=== PATIENT | female | born 1995 | race Caucasian/White ===

== ENCOUNTER → 2017-10-13 | Outpatient (CLI) | payer OTHER ==
[~2017-10-13] MED LIST: ALBU90I INH; AMPDEX10; AZIT250 PO; BENZ100A PO; BIRTH CONTROL; Bactrim Ds Tab1 EACH PO; CEPH500 PO; DIPATR PO; IBUP600 PO; IBUP800 PO; MAGCIT300 PO; METERG.2 PO; METR500 PO; MULVITMINE PO; NAPR500 PO; OXYACE5T PO; PREN-16 PO; PROM25 PO; RXOXYACE PO; RXTRAM50 PO; SULTRIDS PO; TRAM50 PO; Verotin-Gr Cap1 EACH PO
[2017-10-15 13:59] LABS: HPV Genotype 16 Detected (NOTDET); HPV Genotype 18 Not Detected (NOTDET)
[2017-10-21 08:17] LABS: HPV High Risk Other Detected (NOTDET)
== END | disposition home or self-care (01) ==
LOC: LAB 14:20
PROVIDERS: Obstetrics & Gynecology
DX: Z01.419 Encounter for gynecological examination (general) (routine) without abnormal findings (principal)
CPT/HCPCS: 87624; G0123

== ENCOUNTER 2017-11-13 19:15 | Emergency (ER) | END 2017-11-13 21:05 | disposition home or self-care (01) ==

== ENCOUNTER → 2017-11-17 | Outpatient (CLI) | payer OTHER | END | disposition home or self-care (01) | LOC: PLD 13:03 → LAB SHORT 13:03 | DX: B97.7 Papillomavirus as the cause of diseases classified elsewhere (principal) | CPT/HCPCS: 88305 ==

== ENCOUNTER 2019-03-11 16:24 | Emergency (ER) | payer OTHER ==
[~2019-03-11] VITALS: Ht 152.4 cm; Wt 45.4 kg
[2019-03-11 17:48] LABS: Source, Urine Voided
[2019-03-11 17:57] LABS: Appearance, Urine Hazy (Clear); Bilirubin, Urine Neg (Neg); Blood, Urine Neg (Neg); Color, Urine Yellow (P-Yellow); Glucose Qualitative, Urine Neg (Neg); Ketones, Urine Neg (Neg); Leukocyte Esterase, Urine 2+ (Neg); Nitrite, Urine Neg (Neg); Protein, Urine Neg (Neg); Specific Gravity, Urine 1.015 (1.003-1.022); Urobilinogen, Urine NORM (Normal)
[2019-03-11 17:59] LABS: BASOPHILS ABSOLUTE AUTO 0.04 K/mm3 (0.00-0.23); BASOPHILS PERCENT AUTO 0 % (0-2); EOSINOPHILS ABSOLUTE AUTO 0.14 K/mm3 (0.00-0.68); EOSINOPHILS PERCENT AUTO 1 % (0-6); Hematocrit 40.8 % (33.0-51.0); Hemoglobin 13.6 g/dL (11.5-16.0); IMMATURE GRAN ABSOLUTE AUTO 0.04 K/mm3 (0.00-0.10); IMMATURE GRAN PERCENT AUTO 0 % (0-1); LYMPHOCYTES ABSOLUTE AUTO 4.06 K/mm3 (0.84-5.20); LYMPHOCYTES PERCENT AUTO 31 % (21-46); MONOCYTES ABSOLUTE AUTO 1.02 K/mm3 (0.16-1.47); MONOCYTES PERCENT AUTO 8 % (4-13); Mean Corpuscular HGB 32.4 pg (26.0-34.0); Mean Corpuscular HGB Conc 33.3 g/dL (31.5-36.5); Mean Corpuscular Volume 97 fL (80-100); NEUTROPHILS ABSOLUTE AUTO 7.92 K/mm3 (1.96-9.15); NEUTROPHILS PERCENT AUTO 60 % (41-73); Platelet Count 305 K/mm3 (150-400); RDW Coefficient Variation 13.8 % (11.7-14.2); RDW Standard Deviation 49.1 fL (35.1-46.3); White Blood Cell Count 13.22 K/mm3 (4.00-11.30)
[2019-03-11 18:24] LABS: Bacteria Mod /hpf; Red Blood Cells, Urine 0-2 /hpf (0-2); Squamous Epithelial Cells Few /hpf (Few)
[2019-03-11 18:25] LABS: Amorphous Mod (0-Heavy); Calcium Oxalate Crystals Few /hpf
[2019-03-11 18:36] LABS: Alanine Aminotransfer (ALT/SGP 23 U/L (12-78); Albumin, Blood 3.9 g/dL (3.4-5.0); Albumin/Globulin Ratio 1.1 (0.8-1.8); Alk Phos 62 U/L (50-136); Anion Gap 8 mmol/L (6-16); Aspartate Aminotrans (AST/SGOT 15 U/L (12-37); Bilirubin, Total 0.2 mg/dL (0.1-1.0); Blood Urea Nitrogen 10 mg/dL (8-24); Bun/Creatinine Ratio 12.6 (12.0-20.0); CO2, Blood 23 mmol/L (21-32); Chloride, Blood 107 mmol/L (98-108); Globulin, Blood 3.6 g/dL (2.2-4.0); Glomerular Filtration Rate >60 (60-); Glucose, Blood 82 mg/dL (70-99); Potassium, Blood 3.4 mmol/L (3.5-5.5); Sodium, Blood 138 mmol/L (136-145); Total Protein, Blood 7.5 g/dL (6.4-8.2)
[2019-03-11 18:50] LABS: Beta HCG, Quantitative, Serum 7713 mIU/mL (0-3)
[2019-03-11] MEDS ORDERED: Amoxicillin500 MG PO (19:49)
[2019-03-11] MEDS ORDERED: Vitafol-Ob+Dha1 EACH PO (19:49)
[2019-03-11] MEDS ORDERED: PYRI100 PO (19:49)
== END 2019-03-11 20:02 | disposition home or self-care (01) ==
LOC: ER 16:24
PROVIDERS: Emergency Medicine
DX: O99.89 Other specified diseases and conditions complicating pregnancy, childbirth and the puerperium (principal); R07.9 Chest pain, unspecified; R10.2 Pelvic and perineal pain; O99.331 Smoking (tobacco) complicating pregnancy, first trimester; F17.200 Nicotine dependence, unspecified, uncomplicated; Z88.1 Allergy status to other antibiotic agents; Z3A.01 Less than 8 weeks gestation of pregnancy
CPT/HCPCS: 36415; 71045; 76801; 76817; 80053; 81001; 84702; 85025; 85379; 87086; 93005; 93010; 99284-25

== ENCOUNTER 2019-10-22 10:45 | Inpatient (IN) | payer OTHER ==
[~2019-10-22] VITALS: Ht 152.4 cm; Wt 54.1 kg
[~2019-10-22 10:45] MED LIST changes: +Amoxicillin500 MG PO; +PYRI100 PO; +Vitafol-Ob+Dha1 EACH PO
[2019-10-22] MEDS ORDERED: PREPLUS CA-FE1 EACH PO (10:56)
--- NOTE | 2019-10-22 12:48 | NUR ---
10/22/19 1248 Shelton Harrell DELIVERY OF VIABLE MALE INFANT AT 1228. CORD BLOOD COLLECTED AND GIVEN TO SHAW ISSA. CORD SEGMENT COLLECTED FOR CORD GAS AND GIVEN TO ALEKSANDAR LUA. SEE ANESTHESIA AND SUMMARIES.
[2019-10-22 12:49] LABS: PCO2 Cord - Arterial 57.7 mmHg (40-50); pH Cord - Arterial 7.24 (7.28-7.35)
[2019-10-22 12:53] LABS: PCO2 Cord - Venous 48.2 mmHg (40-50); PO2 Cord - Venous 16.7 mmHg (28-32); pH Umbilical Cord - Venous 7.32 (7.26-7.35)
--- NOTE | 2019-10-22 13:45 | NUR ---
VOLUMETRIC CRULLER MAKER MACHINE GIVEN AN INSTRUCTIONS PROVIDED. PT DEMONSTRATED UNDERSTANDING.
--- NOTE | 2019-10-22 16:00 | NUR ---
RECIEVED REPORT FROM ELOINA Parker ASSUMED CARE OF PT
--- NOTE | 2019-10-22 17:27 | NUR ---
PT OOB TO WHEELCHAIR TO SMOKE, WITH FAMILY MEMBERS. PT SIGNED AMA FORM FOR SMOKING. RN EDUCATED PT ABOUT THE RISK OF GOING OUT TO SMOKE. PT VERBALIZED UNDERSTANDING. NB TO NURSE STATION.
--- NOTE | 2019-10-22 18:00 | NUR ---
PT BACK FROM SMOKING. PT BACK TO BED. PT TOLERATED WELL PAIN LEVEL 3/10. NB BACK TO ROOM FOR MOTHER TO FEED NB.
--- NOTE | 2019-10-22 21:15 | NUR ---
PATIENT OUTSIDE TO SMOKE IN WHEELCHAIR.
[2019-10-23 06:13] LABS: Hematocrit 30.2 % (33.0-51.0); Hemoglobin 9.9 g/dL (11.5-16.0); Mean Corpuscular HGB 30.5 pg (26.0-34.0); Mean Corpuscular HGB Conc 32.8 g/dL (31.5-36.5); Mean Corpuscular Volume 93 fL (80-100); Mean Platelet Volume 10.4 fL (9.1-12.4); Platelet Count 250 K/mm3 (150-400); RDW Coefficient Variation 13.2 % (11.7-14.2); RDW Standard Deviation 45.1 fL (35.1-46.3); Red Blood Cell Count 3.25 M/mm3 (3.80-5.20)
[2019-10-23 06:59] LABS: BAND PERCENT MAN 10 % (0-8); BASOPHILS PERCENT MAN 0 % (0-2); EOSINOPHILS PERCENT MAN 0 % (0-6); LYMPHOCYTES ABSOLUTE MAN 3.96 K/mm3 (0.84-5.20); LYMPHOCYTES PERCENT MAN 20 % (21-46); MONOCYTES ABSOLUTE MAN 0.99 K/mm3 (0.16-1.47); MONOCYTES PERCENT MAN 5 % (4-13); NEUTROPHILS ABSOLUTE MAN 14.85 K/mm3 (1.96-9.15); SEG NEUTROPHILS PERCENT MAN 65 % (41-73); TOTAL CELLS COUNTED 100
[2019-10-24] MEDS ORDERED: DOCU100 PO (07:46)
[2019-10-24] MEDS ORDERED: Percocet 5-3251 EACH (07:46)
[2019-10-24] MEDS ORDERED: IBUP800 (07:46)
--- NOTE | 2019-10-24 08:14 | NUR ---
PATIENT ALREADY HAS PORTAL ACCOUNT THROUGH [email or web address]
--- NOTE | 2019-10-24 09:54 | NUR ---
D/C INSTRUCTIONS DISCUSSED AND SIGNED. NO QUESTIONS OR CONCERNS AT THIS TIME.
--- NOTE | 2019-10-24 10:06 | NUR ---
D/C HOME WITH BABY
== END 2019-10-24 10:05 | disposition home or self-care (01) | DRG 785 ==
LOC: BC 10:45
PROVIDERS: Nurse Practitioner Obstetrics & Gynecology; ADMIT Obstetrics & Gynecology
PROC: 10D00Z1 Extraction of Products of Conception, Low, Open Approach (ICD-10-PCS; principal; 2019-10-22 11:00)
PROC: 0UT70ZZ Resection of Bilateral Fallopian Tubes, Open Approach (ICD-10-PCS; 2019-10-22 11:00)
DX: O34.211 Maternal care for low transverse scar from previous cesarean delivery (principal); O36.5930 Maternal care for other known or suspected poor fetal growth, third trimester, not applicable or unspecified; Z3A.37 37 weeks gestation of pregnancy; Z37.0 Single live birth
CPT/HCPCS: 36415; 82803; 85025; 86850; 86900; 86901; 88302; A9270-GY; J0690; J1885; J2590; J2765; J7120

== ENCOUNTER 2023-10-28 10:40 | Day surgery (SDC) | payer OTHER ==
[2023-10-28] VITALS (11 sets, daily range): BP systolic 101–127; BP diastolic 59–81
[~2023-10-28] VITALS: Ht 152.4 cm; Wt 55.0 kg
[~2023-10-28 10:40] MED LIST changes: +DOCU100 PO; +IBUP800; +NARCAN4 M1; +PREPLUS CA-FE1 EACH PO; +Percocet 5-3251 EACH
[2023-10-28] MEDS ORDERED: Lactated Ringer's 1,000 ML IV SCH (11:00)
[2023-10-28] MEDS ORDERED: CeFAZolin Sodium 2,000 MG in NS 50 ML IV SCH (11:00)
[2023-10-28] MEDS ORDERED: Midazolam HCl 1MG / ML 2ML Vial IV SCH (12:40)
[2023-10-28] MEDS ORDERED: propofoL 20 ML IV ONE (12:44)
[2023-10-28] MEDS ORDERED: FentaNYL Citrate 50 MCG/ML 2 ML Injection ONE (12:44)
[2023-10-28] MEDS ORDERED: Bupivacaine 0.5% HCl 5 MG/ML 30MLVIAL ONE (12:54)
[2023-10-28] MEDS ORDERED: Glycopyrrolate 0.2 MG/ML 5ML VIAL ONE (13:12)
[2023-10-28] MEDS ORDERED: Dexamethasone Sod Phos 10 MG/ML 1ML VIAL ONE (13:15)
[2023-10-28] MEDS ORDERED: Metoclopramide HCl 5MG / ML 2ML Vial ONE (13:15)
[2023-10-28] MEDS ORDERED: Ondansetron HCl 2 MG / ML 2ML Vial ONE (13:15)
[2023-10-28] MEDS ORDERED: OxyCODONE 5 mg/Acetamin 325 mg TABLET PO PRN (14:10)
--- NOTE | 2023-10-28 15:31 | NUR ---
Patient up to Ambulate independently. Gait steady. Discharge instructions reviewed with patient. Patient verbalizes understanding. Copy given to patient to take home. AWAITINNG RIDE HOME. TOLERATING PO WELL.
--- NOTE | 2023-10-28 16:05 | NUR ---
Discharge instructions reviewed with patient. Patient verbalizes understanding. Copy given to patient to take home. Discharged via wheelchair to private car for ride home.
== END 2023-10-28 15:55 | disposition home or self-care (01) ==
LOC: ORSCMMR 10:40 → ORD 12:00 → ORSCMMR 12:00
PROVIDERS: Obstetrics & Gynecology
PROC: 0UBC7ZX Excision of Cervix, Via Natural or Artificial Opening, Diagnostic (ICD-10-PCS; principal; 2023-10-28 12:00)
DX: D06.0 Carcinoma in situ of endocervix (principal); R87.810 Cervical high risk human papillomavirus (HPV) DNA test positive; F17.210 Nicotine dependence, cigarettes, uncomplicated
CPT/HCPCS: 88305; A9270; J0690; J1100; J2250; J2405; J2704; J2765; J3010; J7120

== ENCOUNTER 2024-06-03 19:46 | Emergency (ER) | payer OTHER ==
[~2024-06-03] VITALS: Ht 152.4 cm; Wt 53.5 kg
[2024-06-03] MEDS ORDERED: MIRT30 (20:08)
[2024-06-03] MEDS ORDERED: NS 1,000 ML IV SCH (21:05)
[2024-06-03] MEDS ORDERED: Morphine Sulfate 4 MG/1 ML Injection IV ONE (21:05)
[2024-06-03 21:28] LABS: BASOPHILS ABSOLUTE AUTO 0.05 K/mm3 (0.00-0.23); BASOPHILS PERCENT AUTO 1 % (0-2); EOSINOPHILS ABSOLUTE AUTO 0.45 K/mm3 (0.00-0.68); EOSINOPHILS PERCENT AUTO 5 % (0-6); Hemoglobin 12.6 g/dL (11.5-16.0); IMMATURE GRAN ABSOLUTE AUTO 0.01 K/mm3 (0.00-0.10); IMMATURE GRAN PERCENT AUTO 0 % (0-1); LYMPHOCYTES ABSOLUTE AUTO 4.74 K/mm3 (0.84-5.20); LYMPHOCYTES PERCENT AUTO 50 % (21-46); MONOCYTES ABSOLUTE AUTO 0.68 K/mm3 (0.16-1.47); MONOCYTES PERCENT AUTO 7 % (4-13); Mean Corpuscular HGB 32.6 pg (26.0-34.0); Mean Corpuscular HGB Conc 33.2 g/dL (31.5-36.5); Mean Corpuscular Volume 98 fL (80-100); Mean Platelet Volume 9.9 fL (9.1-12.4); NEUTROPHILS ABSOLUTE AUTO 3.57 K/mm3 (1.96-9.15); NEUTROPHILS PERCENT AUTO 38 % (41-73); Platelet Count 316 K/mm3 (150-400); RDW Coefficient Variation 13.7 % (11.7-14.2); RDW Standard Deviation 49.7 fL (35.1-46.3); Red Blood Cell Count 3.87 M/mm3 (3.80-5.20)
[2024-06-03 21:56] LABS: Alanine Aminotransfer (ALT/SGP 14 U/L (12-78); Albumin, Blood 3.5 g/dL (3.4-5.0); Alk Phos 57 U/L (50-136); Anion Gap 13 mmol/L (3-11); Aspartate Aminotrans (AST/SGOT 13 U/L (12-37); Bilirubin, Total <0.1 mg/dL (0.1-1.0); Blood Urea Nitrogen 24 mg/dL (8-24); Bun/Creatinine Ratio 22.2 (12.0-20.0); CO2, Blood 22 mmol/L (21-32); Calcium, Blood 9.2 mg/dL (8.5-10.1); Chloride, Blood 112 mmol/L (98-108); Creatinine, Blood 1.08 mg/dL (0.40-1.00); Globulin, Blood 3.6 g/dL (2.2-4.0); Glomerular Filtration Rate 71 (60-); Glucose, Blood 100 mg/dL (70-99); Potassium, Blood 3.5 mmol/L (3.5-5.5); Sodium, Blood 143 mmol/L (136-145); Total Protein, Blood 7.1 g/dL (6.4-8.2)
[2024-06-03 23:25] LABS: Source, Urine Clean Catch
[2024-06-03 23:29] LABS: Bilirubin, Urine Neg (Neg); Blood, Urine Neg (Neg); Glucose Qualitative, Urine Neg (Neg); Ketones, Urine Neg (Neg); Leukocyte Esterase, Urine Neg (Neg); Nitrite, Urine Neg (Neg); Protein, Urine 1+ (Neg); Urobilinogen, Urine NORM (Normal)
[2024-06-03 23:42] LABS: Appearance, Urine Hazy (Clear); Color, Urine Yellow (P-Yellow)
[2024-06-03 23:43] LABS: Amorphous Light (0-Heavy); Bacteria Few /hpf; Red Blood Cells, Urine Not Seen /hpf (0-2); Squamous Epithelial Cells Mod /hpf (Few); White Blood Cells, Urine Not Seen /hpf (0-5)
[2024-06-04 01:15] VITALS: BP 98/65
== END 2024-06-04 04:02 | disposition home or self-care (01) ==
LOC: ER 19:46
PROVIDERS: Student in an Organized Health Care Education/Training Program
DX: R10.9 Unspecified abdominal pain (principal); Z79.899 Other long term (current) drug therapy; Z91.040 Latex allergy status; Z88.1 Allergy status to other antibiotic agents
CPT/HCPCS: 74177; 80053; 81001; 81025; 83690; 85025; 96361; 96374-59; 99284-25; J2270; J7030; Q9967

== ENCOUNTER 2024-06-17 13:31 | Emergency (ER) | payer OTHER ==
[~2024-06-17] VITALS: Ht 152.4 cm; Wt 54.0 kg
[~2024-06-17 13:31] MED LIST changes: +MIRT30 PO
[2024-06-17] MEDS ORDERED: Ketorolac Tromethamine 15mg Vial IM ONE (16:15)
[2024-06-17] MEDS ORDERED: Ondansetron 4 MG SoluTab SL ONE (16:15)
[2024-06-17 17:15] VITALS: BP 122/81
[2024-06-17] MEDS ORDERED: OxyCODONE HCL 5 MG TAB PO ONE (17:15)
[2024-06-17] MEDS ORDERED: ONDA4ODT MM (17:16)
[2024-06-17] MEDS ORDERED: DOCU100 PO (17:16)
[2024-06-17] MEDS ORDERED: OXAYDO5 M1 PO (17:16)
== END 2024-06-17 17:28 | disposition home or self-care (01) ==
LOC: ER 13:31
DX: R10.2 Pelvic and perineal pain (principal); F17.200 Nicotine dependence, unspecified, uncomplicated; Z79.899 Other long term (current) drug therapy; Z91.040 Latex allergy status; Z88.1 Allergy status to other antibiotic agents
CPT/HCPCS: 96360; 96372; 99283-25; A9270; J1885

== ENCOUNTER 2024-06-29 09:47 | Day surgery (SDC) | payer OTHER ==
[~2024-06-29] VITALS: Ht 152.4 cm; Wt 54.3 kg
[2024-06-29] VITALS (11 sets, daily range): BP systolic 105–137; BP diastolic 61–100
[~2024-06-29 09:47] MED LIST changes: +CeFAZolin Sodium 2,000 MG in NS 100 ML IV SCH; +Dexamethasone Sod Phos 10 MG/ML 1ML VIAL ONE; +FentaNYL Citrate 50 MCG/ML 2 ML Injection ONE; +Ketorolac Tromethamine 30mg Vial ONE; +Lactated Ringer's 1,000 ML IV SCH; +ONDA4ODT MM; +OXAYDO5 M1 PO; +Ondansetron HCl 2 MG / ML 2ML Vial ONE; +Rocuronium Bromide 10 MG/ML 5ML Injection IV ONE; +Sugammadex Sodium 200 MG/2ML SDV (100 MG/ML) ONE; +propofoL 20 ML IV ONE
[2024-06-29] MEDS ORDERED: IBUP200 PO (10:02)
[2024-06-29] MEDS ORDERED: Lidocaine HCl 1% 5 ML SYR INJ ONE (10:40)
[2024-06-29] MEDS ORDERED: Midazolam HCl 1MG / ML 2ML Vial IV PRN (10:45)
[2024-06-29] MEDS ORDERED: Vancomycin HCl 1000 MG ADDvantage ONE (11:37)
[2024-06-29] MEDS ORDERED: Bupivacaine 0.5% HCl 5 MG/ML 30MLVIAL ONE (11:38)
[2024-06-29] MEDS ORDERED: Rocuronium Bromide 10 MG/ML 5ML Injection IV ONE ×2 (12:30→13:35)
[2024-06-29] MEDS ORDERED: HYDROmorphone HCl/Pf 1MG SYR ONE (13:29)
[2024-06-29] MEDS ORDERED: Promethazine HCl 25 MG Tab PO PRN (15:15)
[2024-06-29] MEDS ORDERED: HYDROmorphone HCl/Pf 1MG SYR IV PRN (15:15)
[2024-06-29] MEDS ORDERED: FLU VACC TS2024-25(6MOS UP)/PF 45 MCG/0.5 ML SYRINGE IM PRN (15:15)
[2024-06-29] MEDS ORDERED: Simethicone 80 MG Chew PO PRN (15:15)
[2024-06-29] MEDS ORDERED: OxyCODONE 5 mg/Acetamin 325 mg TABLET PO PRN (15:20)
[2024-06-29] MEDS ORDERED: Ondansetron 4 MG TAB PO PRN (15:20)
[2024-06-29] MEDS ORDERED: Lactated Ringer's 1,000 ML IV SCH (15:20)
[2024-06-29] MEDS ORDERED: Naloxone HCl 0.4MG / ML 1ML Vial IV PRN (15:20)
[2024-06-29] MEDS ORDERED: Promethazine HCl 12.5 MG Supp PR PRN (15:20)
[2024-06-29] MEDS ORDERED: Ondansetron HCl 2 MG / ML 2ML Vial IV PRN (15:20)
[2024-06-29] MEDS ORDERED: Ketorolac Tromethamine 30mg Vial IV PRN (15:25)
--- NOTE | 2024-06-29 16:00 | NUR ---
ARRIVAL TO UNIT PT ARRIVED VIA GOURNEY FROM PACU. PT SLID TO BED. PT GRIMACE c MOVEMENT BUT REPORTS PAIN TOLERABLE AT THIS TIME. A&O x4, VERY DROWSY, EASILY ROUSABLE. VSS. PT DENIES N/V. SEYMOUR DRAINING YELLOW URINE. LAP SITES x4 c WOUND GLUE C/D/I. K-PAD PLACED ON ABD. ORIENTED TO UNIT, CALL LIGHT IN REACH, BED IN LOWEST POSITION.
[2024-06-29] MEDS ORDERED: Percocet 5-3251 EACH PO (17:41)
[2024-06-29] MEDS ORDERED: PROMETHAZINE12.5 M1 PO (17:43)
[2024-06-29] MEDS ORDERED: SIME80CH PO (17:44)
[2024-06-29] MEDS ORDERED: CeFAZolin Sodium 2,000 MG in NS 100 ML IV SCH (18:00)
--- NOTE | 2024-06-29 19:57 | NUR ---
SHIFT SUMMARY POD 0 TOTAL LAP HYSTR. NO ACUTE CHANGES. VSS, PT BRYANT TO 49, QUICKLY REBOUNDS TO 60s, ASYMPTOMATIC. TOLERATING WATER, REPORTS NAUSEA, DENIES EMESIS. PT REPORTS INCREASED ABD PAIN, MEDICATED PER EMAR. K-PAD IN PLACE OVER ABD. AMBULATES USING FWW c GB & SBA R/T WEAKNESS/PAIN. LAP SITE x4 C/D/I. APPROX QUARTER SIZED SANG DRAINAGE ON JOSEPH PAD. SEYMOUR IN PLACE, DRAINING YELLOW URINE. ANTICIPATED DISCHARGE IN AM. CALL LIGHT IN REACH, BED IN LOWEST POSITION, REPORT GIVEN TO DEMETRIUS RN.
[2024-06-29] MEDS ORDERED: Mirtazapine 30 MG Tab PO SCH (21:00)
[2024-06-30 00:13] VITALS: BP 105/47
[2024-06-30 04:44] VITALS: BP 119/69
[2024-06-30 04:48] LABS: BASOPHILS ABSOLUTE AUTO 0.06 K/mm3 (0.00-0.23); BASOPHILS PERCENT AUTO 0 % (0-2); EOSINOPHILS ABSOLUTE AUTO 0.12 K/mm3 (0.00-0.68); EOSINOPHILS PERCENT AUTO 1 % (0-6); Hematocrit 34.3 % (33.0-51.0); Hemoglobin 11.6 g/dL (11.5-16.0); IMMATURE GRAN ABSOLUTE AUTO 0.05 K/mm3 (0.00-0.10); IMMATURE GRAN PERCENT AUTO 0 % (0-1); LYMPHOCYTES ABSOLUTE AUTO 2.68 K/mm3 (0.84-5.20); LYMPHOCYTES PERCENT AUTO 18 % (21-46); MONOCYTES ABSOLUTE AUTO 0.92 K/mm3 (0.16-1.47); MONOCYTES PERCENT AUTO 6 % (4-13); Mean Corpuscular HGB 32.6 pg (26.0-34.0); Mean Corpuscular HGB Conc 33.8 g/dL (31.5-36.5); Mean Corpuscular Volume 96 fL (80-100); Mean Platelet Volume 9.8 fL (9.1-12.4); NEUTROPHILS ABSOLUTE AUTO 10.72 K/mm3 (1.96-9.15); NEUTROPHILS PERCENT AUTO 74 % (41-73); Platelet Count 271 K/mm3 (150-400); RDW Coefficient Variation 12.9 % (11.7-14.2); RDW Standard Deviation 46.7 fL (35.1-46.3); Red Blood Cell Count 3.56 M/mm3 (3.80-5.20); White Blood Cell Count 14.55 K/mm3 (4.00-11.30)
--- NOTE | 2024-06-30 06:39 | NUR ---
SHIFT SUMMARY PATIENT DOING WELL ONLY NEEDED 1 DOES IV PAIN MED TONIGHT.NO NAUSEA. AMB WELL TO BR, VOIDING. EATING REGULAR FOOD BY MIDNIGHT.VSS.
[2024-06-30 07:34] VITALS: BP 112/63
--- NOTE | 2024-06-30 10:47 | NUR ---
DISCHARGE: PACKET PRINTED AND PT EDUCATED. PT REPORTS THAT SHE WAS GIVEN HER SCRIPTS PRE OP BY DR. JONES BUT " CAN'T REMEMBER IF SHE FILLED THE NARCOTIC". PT ASKED TO CHECK HER SUPPLY WHEN SHE GETS HOME AND CALL DR. JONES'S OFFICE IF SHE NEEDS A NEW SCRIPT. PT LEFT UNIT ON WHEELCHAIR WITH THIS RN AT 103
== END 2024-06-30 10:11 | disposition home or self-care (01) ==
LOC: ORSCMMR 09:47 → ORD 11:30 → ORSCMMR 12:30 → ORD 12:30 → SURS 16:00 → ORSCMMR 16:00 → SURS 06-30 10:11 → ORSCMMR 06-30 10:11
PROVIDERS: Obstetrics & Gynecology
PROC: 0UT9FZZ Resection of Uterus, Via Natural or Artificial Opening With Percutaneous Endoscopic Assistance (ICD-10-PCS; principal; 2024-06-29 11:30)
PROC: 0UT7FZZ Resection of Bilateral Fallopian Tubes, Via Natural or Artificial Opening With Percutaneous Endoscopic Assistance (ICD-10-PCS; principal; 2024-06-29 11:30)
DX: N80.319 Endometriosis of the anterior cul-de-sac, unspecified depth (principal); D25.9 Leiomyoma of uterus, unspecified; N94.12 Deep dyspareunia; D06.0 Carcinoma in situ of endocervix; N82.1 Other female urinary-genital tract fistulae; N94.6 Dysmenorrhea, unspecified; R10.2 Pelvic and perineal pain; N80.03 Adenomyosis of the uterus; R23.4 Changes in skin texture; F41.9 Anxiety disorder, unspecified; F32.A Depression, unspecified; F43.10 Post-traumatic stress disorder, unspecified; Z79.899 Other long term (current) drug therapy
CPT/HCPCS: 36415; 85025; 86850; 86900; 86901; 88307; 94762; A9270; J0690; J1100; J1170; J1171; J1885; J2250; J2405; J2704; J3010; J3370; J7120

== ENCOUNTER → 2024-08-25 | Outpatient (CLI) | payer OTHER ==
[~2024-08-25] MED LIST changes: +ACET500 PO; +ACIDOPHILUS1 EAC3 PO; +AMOCLA875 PO; -CeFAZolin Sodium 2,000 MG in NS 100 ML IV SCH; -Dexamethasone Sod Phos 10 MG/ML 1ML VIAL ONE; -FentaNYL Citrate 50 MCG/ML 2 ML Injection ONE; +IBUP200 PO; -Ketorolac Tromethamine 30mg Vial ONE; -Lactated Ringer's 1,000 ML IV SCH; +OXYC5 PO; -Ondansetron HCl 2 MG / ML 2ML Vial ONE; +PROMETHAZINE12.5 M1 PO; +Percocet 5-3251 EACH PO; -Rocuronium Bromide 10 MG/ML 5ML Injection IV ONE; +SIME80CH PO; -Sugammadex Sodium 200 MG/2ML SDV (100 MG/ML) ONE; +VALA500 PO; -propofoL 20 ML IV ONE
[2024-08-25 10:36] LABS: BASOPHILS ABSOLUTE AUTO 0.04 K/mm3 (0.00-0.23); BASOPHILS PERCENT AUTO 0 % (0-2); EOSINOPHILS ABSOLUTE AUTO 0.11 K/mm3 (0.00-0.68); EOSINOPHILS PERCENT AUTO 1 % (0-6); Hematocrit 38.7 % (33.0-51.0); IMMATURE GRAN ABSOLUTE AUTO 0.02 K/mm3 (0.00-0.10); IMMATURE GRAN PERCENT AUTO 0 % (0-1); LYMPHOCYTES ABSOLUTE AUTO 2.58 K/mm3 (0.84-5.20); LYMPHOCYTES PERCENT AUTO 28 % (21-46); MONOCYTES ABSOLUTE AUTO 0.72 K/mm3 (0.16-1.47); MONOCYTES PERCENT AUTO 8 % (4-13); Mean Corpuscular HGB 32.3 pg (26.0-34.0); Mean Corpuscular HGB Conc 33.6 g/dL (31.5-36.5); Mean Corpuscular Volume 96 fL (80-100); Mean Platelet Volume 9.8 fL (9.1-12.4); NEUTROPHILS ABSOLUTE AUTO 5.64 K/mm3 (1.96-9.15); NEUTROPHILS PERCENT AUTO 62 % (41-73); Platelet Count 361 K/mm3 (150-400); RDW Standard Deviation 46.4 fL (35.1-46.3); Red Blood Cell Count 4.02 M/mm3 (3.80-5.20); White Blood Cell Count 9.11 K/mm3 (4.00-11.30)
[2024-08-25 10:55] LABS: Albumin, Blood 3.6 g/dL (3.4-5.0); Albumin/Globulin Ratio 0.9 (0.8-1.8); Bilirubin, Total 0.3 mg/dL (0.1-1.0); Bun/Creatinine Ratio 19.1 (12.0-20.0); Calcium, Blood 9.6 mg/dL (8.5-10.1); Creatinine, Blood 1.15 mg/dL (0.40-1.00); Potassium, Blood 4.1 mmol/L (3.5-5.5); Total Protein, Blood 7.6 g/dL (6.4-8.2)
[2024-08-25 15:18] LABS: Bacterial Vaginosis PCR Negative (NEGATIVE); Candida Group, PCR NOT DETECTED (NOT DETECT); Candida glabrata-krusei, PCR NOT DETECTED (NOT DETECT)
[2024-08-25 15:54] LABS: Chlamydia Trachomatis Vaginal NOT DETECTED (NOT DETECT); Neisseria Gonorrhoea Vaginal NOT DETECTED (NOT DETECT)
== END | disposition home or self-care (01) ==
LOC: LAB SHORT 10:31 → LAB 10:31
PROVIDERS: Emergency Medicine
DX: N89.8 Other specified noninflammatory disorders of vagina (principal); R10.2 Pelvic and perineal pain; R82.81 Pyuria
CPT/HCPCS: 80053; 85025; 87077; 87086; 87186; 87481; 87491; 87591; 87661; 87801

== ENCOUNTER 2024-08-26 21:50 | Inpatient (IN) | payer OTHER ==
[~2024-08-26] VITALS: Ht 152.4 cm; Wt 56.0 kg
[~2024-08-26 21:50] MED LIST changes: -ACET500 PO; -ACIDOPHILUS1 EAC3 PO; -AMOCLA875 PO; -OXYC5 PO; -VALA500 PO
[2024-08-26 22:25] LABS: BASOPHILS ABSOLUTE AUTO 0.06 K/mm3 (0.00-0.23); BASOPHILS PERCENT AUTO 0 % (0-2); EOSINOPHILS ABSOLUTE AUTO 0.42 K/mm3 (0.00-0.68); EOSINOPHILS PERCENT AUTO 2 % (0-6); Hematocrit 39.1 % (33.0-51.0); IMMATURE GRAN ABSOLUTE AUTO 0.07 K/mm3 (0.00-0.10); IMMATURE GRAN PERCENT AUTO 0 % (0-1); LYMPHOCYTES ABSOLUTE AUTO 2.97 K/mm3 (0.84-5.20); LYMPHOCYTES PERCENT AUTO 17 % (21-46); MONOCYTES PERCENT AUTO 7 % (4-13); Mean Corpuscular HGB 32.6 pg (26.0-34.0); Mean Corpuscular HGB Conc 33.2 g/dL (31.5-36.5); Mean Corpuscular Volume 98 fL (80-100); Mean Platelet Volume 9.6 fL (9.1-12.4); NEUTROPHILS ABSOLUTE AUTO 12.73 K/mm3 (1.96-9.15); NEUTROPHILS PERCENT AUTO 73 % (41-73); Platelet Count 330 K/mm3 (150-400); RDW Standard Deviation 46.7 fL (35.1-46.3); Red Blood Cell Count 3.99 M/mm3 (3.80-5.20); White Blood Cell Count 17.45 K/mm3 (4.00-11.30)
[2024-08-26] MEDS ORDERED: Ondansetron HCl 2 MG / ML 2ML Vial IV ONE (22:25)
[2024-08-26] MEDS ORDERED: Morphine Sulfate 4 MG/1 ML Injection IV ONE ×2 (22:25→22:40)
[2024-08-26 22:45] LABS: Albumin, Blood 3.5 g/dL (3.4-5.0); Albumin/Globulin Ratio 0.9 (0.8-1.8); Bilirubin, Total 0.5 mg/dL (0.1-1.0); Bun/Creatinine Ratio 17.5 (12.0-20.0); Calcium, Blood 9.1 mg/dL (8.5-10.1); Creatinine, Blood 1.03 mg/dL (0.40-1.00); Globulin, Blood 3.9 g/dL (2.2-4.0); Potassium, Blood 3.6 mmol/L (3.5-5.5); Total Protein, Blood 7.4 g/dL (6.4-8.2)
[2024-08-26] MEDS ORDERED: HYDROmorphone HCl/Pf 1MG SYR IV ONE (23:10)
[2024-08-26 23:38] LABS: Source, Urine Voided
[2024-08-26 23:41] LABS: Bilirubin, Urine Neg (Neg); Blood, Urine 5+ (Neg); Glucose Qualitative, Urine Neg (Neg); Ketones, Urine Neg (Neg); Leukocyte Esterase, Urine 3+ (Neg); Nitrite, Urine Neg (Neg); Protein, Urine 3+ (Neg); Specific Gravity, Urine 1.015 (1.003-1.022); Urobilinogen, Urine NORM (Normal)
[2024-08-26 23:45] LABS: Appearance, Urine Hazy (Clear); Color, Urine Yellow (P-Yellow)
[2024-08-26 23:49] LABS: Bacteria Mod /hpf; Squamous Epithelial Cells Many /hpf (Few)
[2024-08-27] MEDS ORDERED: Piperacillin/Tazobactam Sod 4.5 GM in NS 100 ML IV ONE (00:25)
[2024-08-27] MEDS ORDERED: NS 1,000 ML IV SCH (00:30)
[2024-08-27] MEDS ORDERED: Nicotine 21 MG PATCH TOP ONE (01:00)
[2024-08-27 01:45] VITALS: BP 97/57
[2024-08-27] MEDS ORDERED: NS 1,000 ML IV ONE (02:21)
[2024-08-27] MEDS ORDERED: Ondansetron HCl 2 MG / ML 2ML Vial IV PRN (03:05)
[2024-08-27] MEDS ORDERED: HYDROmorphone HCl/Pf 1MG SYR IV PRN (03:05)
[2024-08-27 04:00] VITALS: BP 99/60
[2024-08-27] MEDS ORDERED: Piperacillin/Tazobactam Sod 3.375 GM in NS 100 ML IV SCH (06:00)
--- NOTE | 2024-08-27 06:48 | NUR ---
PT ARRIVED TO UNIT AFTER MIDNIGHT. C/O MODERATE TO SEVERE PAIN IN PELVIC REGION. PT GIVEN PRN DILAUDID WITH GOOD EFFECT AND GIVEN HEAT PAD FOR ABDOMEN WHICH SEEMED TO HELP. PTS VSS ON RA. PT REMAINS NPO AT THIS TIME. NO FURTHER QUESTIONS OR CONCERNS AT THIS TIME.
[2024-08-27 07:23] VITALS: BP 106/53
[2024-08-27 10:52] LABS: BASOPHILS ABSOLUTE AUTO 0.06 K/mm3 (0.00-0.23); BASOPHILS PERCENT AUTO 0 % (0-2); EOSINOPHILS PERCENT AUTO 5 % (0-6); Hematocrit 35.7 % (33.0-51.0); Hemoglobin 11.8 g/dL (11.5-16.0); IMMATURE GRAN ABSOLUTE AUTO 0.05 K/mm3 (0.00-0.10); IMMATURE GRAN PERCENT AUTO 0 % (0-1); LYMPHOCYTES ABSOLUTE AUTO 2.39 K/mm3 (0.84-5.20); LYMPHOCYTES PERCENT AUTO 17 % (21-46); MONOCYTES ABSOLUTE AUTO 1.28 K/mm3 (0.16-1.47); MONOCYTES PERCENT AUTO 9 % (4-13); Mean Corpuscular HGB 32.5 pg (26.0-34.0); Mean Corpuscular HGB Conc 33.1 g/dL (31.5-36.5); Mean Corpuscular Volume 98 fL (80-100); Mean Platelet Volume 10.2 fL (9.1-12.4); NEUTROPHILS PERCENT AUTO 69 % (41-73); Platelet Count 309 K/mm3 (150-400); RDW Coefficient Variation 13.1 % (11.7-14.2); RDW Standard Deviation 47.1 fL (35.1-46.3); Red Blood Cell Count 3.63 M/mm3 (3.80-5.20); White Blood Cell Count 14.38 K/mm3 (4.00-11.30)
[2024-08-27] MEDS ORDERED: ValACYClovir HCL 500 MG Tab PO SCH (12:00)
--- NOTE | 2024-08-27 14:00 | NUR ---
RECIEVED ORDER FROM DR. JONES TO CHANGE DILAUDID TO PO FROM IV AND CHANGE NICOTINE PATCH TO 14MG.
[2024-08-27 14:34] VITALS: BP 119/73
[2024-08-27] MEDS ORDERED: Nicotine 14 MG PATCH TOP SCH (15:05)
[2024-08-27] MEDS ORDERED: HYDROmorphone HCl 2 MG Tab PO PRN (15:10)
--- NOTE | 2024-08-27 18:46 | NUR ---
SHIFT SUMMARY PT IS A/OX4, IND IN ROOM/SBA W/ IV POLE. SCANT VAG BLEEDING THIS SHIFT, PT'S PAIN IS TOLERABLE W/ PAIN MEDS GIVEN PER EMAR. VSS. ABD TENDER TO PALPATION. IV FLUIDS AND ABX GIVEN ORDERED. PT'S S/O AT BEDSIDE CURRENTLY. PT DENIES NAUSEA, IS TOLERATING REG DIET AND PO FLUIDS. CALL LIGHT IN REACH.
[2024-08-27 19:17] VITALS: BP 119/68
[2024-08-28] MEDS ORDERED: NS 1,000 ML IV SCH (01:45)
--- NOTE | 2024-08-28 04:27 | NUR ---
SHIFT SUMMARY ASSUMED CARE OF PT AT 1900. PT A&O4, COOPERATIVE IN CARE AND ABLE TO EXPRESS SELF APPROPRIATELY. VSS AND PT REMAINED ON RA. PT DENIES CP/PRESSURE AND SOB. PT REPORTED VAGINAL BLEEDING STOPPED. FAMILY AT BEDSIDE, ASSISTS PT TO THE RR. BE IN LOWEST POSITION AND CALL LIGHT WITHIN REACH.
[2024-08-28 05:18] VITALS: BP 101/52
[2024-08-28 06:22] LABS: BASOPHILS ABSOLUTE AUTO 0.04 K/mm3 (0.00-0.23); BASOPHILS PERCENT AUTO 0 % (0-2); EOSINOPHILS ABSOLUTE AUTO 0.72 K/mm3 (0.00-0.68); EOSINOPHILS PERCENT AUTO 4 % (0-6); Hematocrit 32.5 % (33.0-51.0); Hemoglobin 10.8 g/dL (11.5-16.0); IMMATURE GRAN ABSOLUTE AUTO 0.05 K/mm3 (0.00-0.10); IMMATURE GRAN PERCENT AUTO 0 % (0-1); LYMPHOCYTES ABSOLUTE AUTO 2.81 K/mm3 (0.84-5.20); LYMPHOCYTES PERCENT AUTO 17 % (21-46); MONOCYTES PERCENT AUTO 8 % (4-13); Mean Corpuscular HGB 32.8 pg (26.0-34.0); Mean Corpuscular HGB Conc 33.2 g/dL (31.5-36.5); Mean Corpuscular Volume 99 fL (80-100); Mean Platelet Volume 10.5 fL (9.1-12.4); NEUTROPHILS ABSOLUTE AUTO 11.45 K/mm3 (1.96-9.15); NEUTROPHILS PERCENT AUTO 70 % (41-73); Platelet Count 268 K/mm3 (150-400); RDW Coefficient Variation 13.1 % (11.7-14.2); RDW Standard Deviation 47.4 fL (35.1-46.3); Red Blood Cell Count 3.29 M/mm3 (3.80-5.20); White Blood Cell Count 16.37 K/mm3 (4.00-11.30)
[2024-08-28 07:25] VITALS: BP 108/67
--- NOTE | 2024-08-28 08:37 | NUR ---
ASSUMPTION OF CARE ASSUMED CARE AT 0715. PATIENT ALERT AND ORIENTED X4. COMMUNICATES NEEDS EFFECTIVELY. SBA WITH ADLs FOR LINE MANAGEMENT. VSS. REPORTING 5/10 LOWER ABD, PELVIC PAIN. REPORTS POOR PAIN CONTROL WITH PO DILAUDID - IS REFUSING TO TAKE MEDICATION FOR PAIN THIS MORNING. K PAD IN PLACE. REPORTS SCANT BLEEDING ON JOSEPH PAD. MD WONDERLY CONTACTED - AWAITING NEW ORDERS. REPORTS FLATULENCE. VOIDING. TOLERATING PO INTAKE. IVF INFUSING PER EMAR. CALL LIGHT IN REACH.
[2024-08-28] MEDS ORDERED: OxyCODONE 5 mg/Acetamin 325 mg TABLET PO PRN (09:20)
--- NOTE | 2024-08-28 09:23 | NUR ---
UPDATE WONDERMICHOACANO AT BEDSIDE ROUNDING. RECEIVED ORDER FOR IV DILAUDID 1-2MG Q4 PRN AND FOR PO PERCOCET 5/325 1-2 TABS Q4 PRN. PATIENT REQUESTING DECREASED DOSE OF NICOTINE PATCH. ORDER RECEIVED FOR NICOTINE PATCH 7MG DAILY. PREVIOUS ORDER DC'd. WILL ADMINISTER PER EMAR.
[2024-08-28] MEDS ORDERED: Nicotine 7 MG PATCH TOP SCH (09:25)
[2024-08-28] MEDS ORDERED: HYDROmorphone HCl/Pf 1MG SYR IV PRN (09:25)
[2024-08-28 14:24] VITALS: BP 108/56
--- NOTE | 2024-08-28 17:52 | NUR ---
SHIFT SUMMARY NO ACUTE EVENTS SINCE PREVIOUS NOTES. PATIENT REMAINS ALERT AND ORIENTED X4. INDEPENDENT IN ROOM. COMMUNICATES NEEDS EFFECTIVELY. PAIN MANAGED PER EMAR WITH PO PERCOCET AND KPAD. PATIENT REPORTS SCANT BLEEDING ON JOSEPH PAD. VS REMAIN STABLE. TOLERATING PO INTAKE. VOIDING. CALL LIGHT IN REACH. WILL CONTINUE TO MONITOR AND REPORT TO ONCOMING RN.
[2024-08-28 19:20] VITALS: BP 99/57
[2024-08-28] MEDS ORDERED: Lactobacil 2-S.Thermo-Bifido 1 1 Cap PO SCH (21:00)
--- NOTE | 2024-08-29 04:05 | NUR ---
SHIFT SUMMARY PATIENT WAS ABLE TO SLEEP IN LONG INTERVALS, HAS BEEN EATING WELL AND ORAL PAIN MEDS WORKING BETTER. C/O HAVING DIARRHEA, ORDER FOR ORAL PROBIOTICS STARTED.
[2024-08-29 05:10] LABS: BASOPHILS ABSOLUTE AUTO 0.04 K/mm3 (0.00-0.23); BASOPHILS PERCENT AUTO 0 % (0-2); EOSINOPHILS ABSOLUTE AUTO 0.66 K/mm3 (0.00-0.68); EOSINOPHILS PERCENT AUTO 6 % (0-6); Hematocrit 34.7 % (33.0-51.0); Hemoglobin 11.5 g/dL (11.5-16.0); IMMATURE GRAN ABSOLUTE AUTO 0.03 K/mm3 (0.00-0.10); IMMATURE GRAN PERCENT AUTO 0 % (0-1); LYMPHOCYTES ABSOLUTE AUTO 3.16 K/mm3 (0.84-5.20); LYMPHOCYTES PERCENT AUTO 28 % (21-46); MONOCYTES ABSOLUTE AUTO 0.95 K/mm3 (0.16-1.47); MONOCYTES PERCENT AUTO 9 % (4-13); Mean Corpuscular HGB 32.7 pg (26.0-34.0); Mean Corpuscular HGB Conc 33.1 g/dL (31.5-36.5); Mean Corpuscular Volume 99 fL (80-100); Mean Platelet Volume 10.4 fL (9.1-12.4); NEUTROPHILS PERCENT AUTO 57 % (41-73); Platelet Count 297 K/mm3 (150-400); RDW Coefficient Variation 12.8 % (11.7-14.2); RDW Standard Deviation 45.9 fL (35.1-46.3); Red Blood Cell Count 3.52 M/mm3 (3.80-5.20); White Blood Cell Count 11.24 K/mm3 (4.00-11.30)
[2024-08-29 05:31] VITALS: BP 109/71
[2024-08-29 07:10] VITALS: BP 111/59
--- NOTE | 2024-08-29 09:57 | NUR ---
MORNING NOTE THIS RN ASSUMED CARE AT APPROX 1915. PATIENT ALERT AND ORIENTED X4. COMMUNICATES NEEDS EFFECTIVELY. INDEPEDENT IN ROOM. VSS. MANAGING PELVIC PAIN PER EMAR AND WITH KPAD. PAIN MANAGEMENT IMPROVED SINCE YESTERDAY WITH PO PERCOCET. REPORTS SCANT VAGINAL BLEEDING. EAGER TO DC HOME - MD WONDERLY AT BEDSIDE THIS MORNING. NO NEW ORDERS RECEIVED. PATIENT REPORTING EPISODES OF LOOSE STOOL LAST NIGHT - PO PROBIOTICS STARTED. CALL LIGHT IN REACH.
[2024-08-29 15:34] VITALS: BP 121/81
--- NOTE | 2024-08-29 16:56 | NUR ---
SHIFT SUMMARY NO ACUTE CHANGES SINCE PREVIOUS DOCUMENTATION. PATIENT REMAINS ALERT AND ORIENTED X4. INDEPENDENT IN ROOM - SHOWERED TODAY. VSS. MANAGING PAIN PER EMAR AND WITH KPAD. PATIENT EAGER TO DC HOME - DISCUSSED WITH MD WONDERLY. PER MD, PLAN FOR DC TOMORROW FOLLOWING FURTHER IV ABX AND PELVIC EXAM. SCANT VAGINAL BLEEDING. X1 EPISODE OF LOOSE STOOL. TOLERATING PO INTAKE. CALL LIGHT IN REACH. WILL CONTINUE TO MONITOR AND REPORT TO ONCOMING RN.
[2024-08-29 19:58] VITALS: BP 108/68
[2024-08-30 04:16] VITALS: BP 99/56
--- NOTE | 2024-08-30 06:30 | NUR ---
SHIFT SUMMARY NOC. PT ADMIT FOR VAGINAL CUFF CELLULITIS AFTER HYSTERECTOMY IN JUNE. PT MEDICATED FOR PAIN X2 WITH ORAL PERCOCET. PT REPORTS RELIEF POST MEDICATION. PT C/O ABDOMINAL/PELVIC PAIN/CRAMPING. DENIES VAGINAL BLEEDING OR ITCH. PT VOIDING URINE AND HAD LIQUID STOOL. PT MAKES NEEDS KNOWN, CALL LIGHT IN REACH.
[2024-08-30 08:12] VITALS: BP 96/56
[2024-08-30 15:09] VITALS: BP 123/78
--- NOTE | 2024-08-30 19:03 | NUR ---
SUMMARY NO ACUTE CHANGES TO SHIFT. PT MEDICATED PER ORDERS T/O DAY FOR LOWER ABDOMINAL PAIN. REC'D ABX PER ORDERS. WONDERLY IN TO SEE PT THIS AFTERNOON. INDEPENDENT, AMBULATED MULTIPLE TIMES IN ZELAYA. PLEASANT AND COOPERATIVE.
[2024-08-30 19:25] VITALS: BP 103/72
[2024-08-31 05:37] VITALS: BP 101/63
--- NOTE | 2024-08-31 06:44 | NUR ---
SHIFT SUMMARY NOC. PT ADMIT FOR VAGINAL CUFF CELLULITIS POST HYSTERECTOMY IN JUNE 2024. PT MEDICATED FOR PAIN WITH ORAL PERCOCET, REPORTED RELIEF OF SX WITH USE. PT CONTINUES TO HAVE ABDOMINAL/PELVIC PAIN CRAMPING. PT DENIES VAGINAL BLEEDING, ITCHING, OR DISCHARGE. PT VOIDING URINE AND HAVING CONTINUED LOOSE BM. PT MAKES NEEDS KNOWN AND CALL LIGHT IN REACH.
[2024-08-31 07:04] VITALS: BP 98/59
[2024-08-31 08:49] LABS: BASOPHILS ABSOLUTE AUTO 0.04 K/mm3 (0.00-0.23); BASOPHILS PERCENT AUTO 1 % (0-2); EOSINOPHILS ABSOLUTE AUTO 0.58 K/mm3 (0.00-0.68); EOSINOPHILS PERCENT AUTO 7 % (0-6); Hematocrit 35.4 % (33.0-51.0); IMMATURE GRAN ABSOLUTE AUTO 0.02 K/mm3 (0.00-0.10); IMMATURE GRAN PERCENT AUTO 0 % (0-1); LYMPHOCYTES ABSOLUTE AUTO 2.66 K/mm3 (0.84-5.20); LYMPHOCYTES PERCENT AUTO 31 % (21-46); MONOCYTES PERCENT AUTO 7 % (4-13); Mean Corpuscular HGB 32.4 pg (26.0-34.0); Mean Corpuscular HGB Conc 33.9 g/dL (31.5-36.5); Mean Corpuscular Volume 96 fL (80-100); Mean Platelet Volume 9.6 fL (9.1-12.4); NEUTROPHILS ABSOLUTE AUTO 4.82 K/mm3 (1.96-9.15); NEUTROPHILS PERCENT AUTO 55 % (41-73); Platelet Count 367 K/mm3 (150-400); RDW Coefficient Variation 12.5 % (11.7-14.2); White Blood Cell Count 8.72 K/mm3 (4.00-11.30)
[2024-08-31 09:09] VITALS: BP 104/61
[2024-08-31 09:11] VITALS: BP 104/61
--- NOTE | 2024-08-31 10:30 | NUR ---
BRADYCARDIA SPOKE WITH DR. JONES REGARDING BRADYCARDIA AND DROWSINESS THIS MORNING. PT ASYMPTOMATIC OF BRADYCARDIA. PER DR. JONES MONITOR VS PER UNIT ROUTINE BUT NOTIFY HIM AND INCREASE MONITORING IF THERE ARE ANY CHANGES. PER DR. JONES PLAN IS FOR DISCHARGE HOME TODAY AFTER CT. PT'S HR IMPROVED TO GREATER THAN 50 ONCE AWAKE.
[2024-08-31] MEDS ORDERED: Acetaminophen 500 MG Tab PO PRN (10:35)
[2024-08-31] MEDS ORDERED: OxyCODONE HCL 5 MG TAB PO PRN (10:35)
[2024-08-31] MEDS ORDERED: Ketorolac Tromethamine 30mg Vial IV PRN (10:35)
[2024-08-31] MEDS ORDERED: ACET500 PO (15:31)
[2024-08-31] MEDS ORDERED: OXYC5 PO (15:33)
[2024-08-31] MEDS ORDERED: VALA500 PO (15:34)
[2024-08-31] MEDS ORDERED: ACIDOPHILUS1 EAC3 PO (15:34)
[2024-08-31] MEDS ORDERED: AMOCLA875 PO (15:36)
[2024-08-31] MEDS ORDERED: METR500 PO (15:37)
[2024-08-31 16:02] VITALS: BP 115/84
--- NOTE | 2024-08-31 16:12 | NUR ---
DISCHARGE PT PROVIDED WITH WRITTEN AND VERBAL DISCHARGE INSTRUCTIONS, SHE REPORTED UNDERSTANDING. PAIN MANAGED AT TIME OF DISCHARGE. VSS. PT AMBULATED OUT AT 1614.
== END 2024-08-31 16:13 | disposition home or self-care (01) | DRG 760 ==
LOC: ER 21:50 → SURS 21:51 → MEDS 21:51 → SURS 08-27 01:18
PROVIDERS: Obstetrics & Gynecology; Student in an Organized Health Care Education/Training Program; ADMIT Obstetrics & Gynecology
DX: N99.3 Prolapse of vaginal vault after hysterectomy (principal); N73.3 Female acute pelvic peritonitis; N76.0 Acute vaginitis; R10.2 Pelvic and perineal pain; R82.81 Pyuria; Z90.710 Acquired absence of both cervix and uterus; Z98.890 Other specified postprocedural states; Z87.440 Personal history of urinary (tract) infections; F17.210 Nicotine dependence, cigarettes, uncomplicated; Z91.040 Latex allergy status; Z88.8 Allergy status to other drugs, medicaments and biological substances
CPT/HCPCS: 36415; 74177; 76830; 76856; 80053; 81001; 83690; 85025; 86850; 86900; 86901; 87040; 87077; 87086; 87186; 87481; 87491; 87591; 87661; 87801; 96365; 96366; 96375; 96376; 99285-25; A9270; G0378; J1171; J1885; J2270; J2405; J2543; J7030; Q9967

== ENCOUNTER 2024-09-29 04:08 | Observation (INO) | payer OTHER ==
[~2024-09-29] VITALS: Ht 152.4 cm; Wt 56.7 kg
[~2024-09-29 04:08] MED LIST changes: +ACET500 PO; +ACIDOPHILUS1 EAC3 PO; +AMOCLA875 PO; +OXYC5 PO; +VALA500 PO
[2024-09-29] MEDS ORDERED: Ondansetron HCl 2 MG / ML 2ML Vial IV ONE (04:25)
[2024-09-29] MEDS ORDERED: Ketorolac Tromethamine 15mg Vial IV ONE (04:30)
[2024-09-29 04:39] LABS: BASOPHILS ABSOLUTE AUTO 0.08 K/mm3 (0.00-0.23); BASOPHILS PERCENT AUTO 0 % (0-2); EOSINOPHILS ABSOLUTE AUTO 0.01 K/mm3 (0.00-0.68); EOSINOPHILS PERCENT AUTO 0 % (0-6); Hematocrit 40.7 % (33.0-51.0); Hemoglobin 13.9 g/dL (11.5-16.0); IMMATURE GRAN ABSOLUTE AUTO 0.15 K/mm3 (0.00-0.10); IMMATURE GRAN PERCENT AUTO 1 % (0-1); LYMPHOCYTES ABSOLUTE AUTO 2.14 K/mm3 (0.84-5.20); LYMPHOCYTES PERCENT AUTO 8 % (21-46); MONOCYTES ABSOLUTE AUTO 1.47 K/mm3 (0.16-1.47); MONOCYTES PERCENT AUTO 5 % (4-13); Mean Corpuscular HGB 32.7 pg (26.0-34.0); Mean Corpuscular HGB Conc 34.2 g/dL (31.5-36.5); Mean Corpuscular Volume 96 fL (80-100); Mean Platelet Volume 9.6 fL (9.1-12.4); NEUTROPHILS ABSOLUTE AUTO 24.69 K/mm3 (1.96-9.15); NEUTROPHILS PERCENT AUTO 87 % (41-73); Platelet Count 357 K/mm3 (150-400); RDW Coefficient Variation 13.7 % (11.7-14.2); Red Blood Cell Count 4.25 M/mm3 (3.80-5.20); White Blood Cell Count 28.54 K/mm3 (4.00-11.30)
[2024-09-29 04:59] LABS: Albumin, Blood 3.9 g/dL (3.4-5.0); Bilirubin, Total 0.5 mg/dL (0.1-1.0); Bun/Creatinine Ratio 20.3 (12.0-20.0); Calcium, Blood 9.4 mg/dL (8.5-10.1); Creatinine, Blood 0.99 mg/dL (0.40-1.00); Globulin, Blood 4.1 g/dL (2.2-4.0); Potassium, Blood 3.8 mmol/L (3.5-5.5)
[2024-09-29] MEDS ORDERED: NS 1,000 ML IV SCH ×2 (05:30→14:30)
[2024-09-29] MEDS ORDERED: Piperacillin/Tazobactam Sod 3.375 GM in NS 100 ML IV ONE (06:45)
[2024-09-29] MEDS ORDERED: HYDROmorphone HCl/Pf 1MG SYR IV ONE ×2 (06:45→13:45)
[2024-09-29 11:22] LABS: Source, Urine Clean Catch
[2024-09-29 11:25] LABS: Appearance, Urine Clear (Clear); Bilirubin, Urine Neg (Neg); Blood, Urine 2+ (Neg); Color, Urine Yellow (P-Yellow); Glucose Qualitative, Urine Neg (Neg); Ketones, Urine Neg (Neg); Leukocyte Esterase, Urine 1+ (Neg); Nitrite, Urine Pos (Neg); Protein, Urine 2+ (Neg); Specific Gravity, Urine 1.005 (1.003-1.022); Urobilinogen, Urine NORM (Normal)
[2024-09-29 11:41] LABS: Red Blood Cells, Urine 0-2 /hpf (0-2)
[2024-09-29 11:42] LABS: Bacteria Few /hpf; Squamous Epithelial Cells Few /hpf (Few)
[2024-09-29] MEDS ORDERED: METR500 PO (15:40)
[2024-09-29] MEDS ORDERED: CEFTRIAXON1 GM/50 M1 IV (15:42)
[2024-09-29] MEDS ORDERED: OxyCODONE 10/Acetamin 325 TABLET PO PRN (16:35)
[2024-09-29] MEDS ORDERED: HYDROmorphone HCl/Pf 1MG SYR IV PRN (16:35)
[2024-09-29 17:20] VITALS: BP 115/71
[2024-10-01] MEDS ORDERED: CefTRIAXone Sodium 2,000 MG in NS 100 ML IV SCH (06:00)
== END 2024-09-29 17:20 | disposition home or self-care (01) ==
LOC: ER 04:08 → ERHOLD 04:09
PROVIDERS: Emergency Medicine; ADMIT Obstetrics & Gynecology
DX: R10.2 Pelvic and perineal pain (principal); N73.9 Female pelvic inflammatory disease, unspecified; F17.200 Nicotine dependence, unspecified, uncomplicated; Z79.899 Other long term (current) drug therapy; Z88.1 Allergy status to other antibiotic agents; Z91.040 Latex allergy status; Z90.710 Acquired absence of both cervix and uterus
CPT/HCPCS: 36415; 74177; 80053; 81001; 83605; 85025; 87040; 87086; 93005; 93010; 96365; 96375; 96376; 99285-25; A9270; G0378; J0696; J1171; J1885; J2405; J2543; J7030; Q9967

== ENCOUNTER 2024-09-30 02:42 | Day surgery (SDC) | payer OTHER ==
[~2024-09-30 02:42] MED LIST changes: +CEFTRIAXON1 GM/50 M1 IV
[2024-09-30] MEDS ORDERED: CefTRIAXone Sodium 2,000 MG in NS 100 ML IV SCH (06:00)
[2024-09-30 08:48] VITALS: BP 115/72
== END 2024-09-30 08:55 | disposition home or self-care (01) ==
LOC: ATC 02:42
DX: N73.2 Unspecified parametritis and pelvic cellulitis (principal); F17.210 Nicotine dependence, cigarettes, uncomplicated; Z91.040 Latex allergy status; Z88.8 Allergy status to other drugs, medicaments and biological substances; Z79.899 Other long term (current) drug therapy
CPT/HCPCS: 96365; J0696

== ENCOUNTER 2024-10-01 00:07 | Inpatient (IN) | payer OTHER ==
[~2024-10-01] VITALS: Ht 152.4 cm; Wt 56.5 kg
[2024-10-01] MEDS ORDERED: Cefepime HCl 2,000 MG in NS 50 ML IV ONE (01:00)
[2024-10-01 01:16] LABS: BASOPHILS ABSOLUTE AUTO 0.07 K/mm3 (0.00-0.23); BASOPHILS PERCENT AUTO 0 % (0-2); EOSINOPHILS ABSOLUTE AUTO 0.25 K/mm3 (0.00-0.68); EOSINOPHILS PERCENT AUTO 1 % (0-6); Hematocrit 35.8 % (33.0-51.0); Hemoglobin 11.9 g/dL (11.5-16.0); IMMATURE GRAN ABSOLUTE AUTO 0.17 K/mm3 (0.00-0.10); IMMATURE GRAN PERCENT AUTO 1 % (0-1); LYMPHOCYTES ABSOLUTE AUTO 2.03 K/mm3 (0.84-5.20); LYMPHOCYTES PERCENT AUTO 8 % (21-46); MONOCYTES ABSOLUTE AUTO 0.97 K/mm3 (0.16-1.47); MONOCYTES PERCENT AUTO 4 % (4-13); Mean Corpuscular HGB 32.2 pg (26.0-34.0); Mean Corpuscular HGB Conc 33.2 g/dL (31.5-36.5); Mean Corpuscular Volume 97 fL (80-100); Mean Platelet Volume 9.5 fL (9.1-12.4); NEUTROPHILS ABSOLUTE AUTO 22.95 K/mm3 (1.96-9.15); NEUTROPHILS PERCENT AUTO 87 % (41-73); Platelet Count 273 K/mm3 (150-400); RDW Coefficient Variation 14.3 % (11.7-14.2); RDW Standard Deviation 51.2 fL (35.1-46.3); Red Blood Cell Count 3.69 M/mm3 (3.80-5.20); White Blood Cell Count 26.44 K/mm3 (4.00-11.30)
[2024-10-01 01:44] LABS: Magnesium, Blood 2.3 mg/dL (1.6-2.4)
[2024-10-01 02:03] LABS: Alanine Aminotransfer (ALT/SGP 13 U/L (12-78); Albumin, Blood 3.1 g/dL (3.4-5.0); Albumin/Globulin Ratio 0.7 (0.8-1.8); Alk Phos 87 U/L (50-136); Anion Gap 9 mmol/L (3-11); Aspartate Aminotrans (AST/SGOT 15 U/L (12-37); Bilirubin, Direct <0.1 mg/dL (0.0-0.3); Bilirubin, Indirect Unable to Calculate mg/dL (0.1-0.7); Bilirubin, Total 0.2 mg/dL (0.1-1.0); Blood Urea Nitrogen 19 mg/dL (8-24); Bun/Creatinine Ratio 21.7 (12.0-20.0); CO2, Blood 24 mmol/L (21-32); Calcium, Blood 9.4 mg/dL (8.5-10.1); Chloride, Blood 110 mmol/L (98-108); Creatinine, Blood 0.88 mg/dL (0.40-1.00); Globulin, Blood 4.7 g/dL (2.2-4.0); Glomerular Filtration Rate 91 (60-); Glucose, Blood 87 mg/dL (70-99); Phosphorus, Blood 1.3 mg/dL (2.5-4.9); Potassium, Blood 3.7 mmol/L (3.5-5.5); Sodium, Blood 139 mmol/L (136-145); Total Protein, Blood 7.8 g/dL (6.4-8.2)
[2024-10-01] MEDS ORDERED: Piperacillin/Tazobactam Sod 4.5 GM in NS 100 ML IV ONE (03:00)
[2024-10-01] MEDS ORDERED: Morphine Sulfate 4 MG/1 ML Injection IV ONE (03:00)
[2024-10-01] MEDS ORDERED: Ondansetron HCl 2 MG / ML 2ML Vial IV PRN (04:50)
[2024-10-01] MEDS ORDERED: FentaNYL Citrate 50 MCG/ML 2 ML Injection IV PRN (04:50)
[2024-10-01] MEDS ORDERED: FLU VACC TS2024-25(6MOS UP)/PF 45 MCG/0.5 ML SYRINGE IM ONE (04:50)
[2024-10-01] MEDS ORDERED: NS 1,000 ML IV SCH (04:50)
[2024-10-01] MEDS ORDERED: Vancomycin HCL 1,250 MG in NS 250 ML IV ONE (05:30)
[2024-10-01] MEDS ORDERED: Potassium Phosphate Dibasic 30 MM in Dextrose 5% 500 ML IV ONE (06:00)
[2024-10-01] MEDS ORDERED: Piperacillin/Tazobactam Sod 4.5 GM in NS 100 ML IV SCH (08:00)
[2024-10-01 08:26] LABS: Source, Urine Clean Catch
[2024-10-01 08:34] LABS: Appearance, Urine Hazy (Clear); Bilirubin, Urine Neg (Neg); Blood, Urine 5+ (Neg); Color, Urine Yellow (P-Yellow); Glucose Qualitative, Urine Neg (Neg); Ketones, Urine Neg (Neg); Leukocyte Esterase, Urine 2+ (Neg); Nitrite, Urine Neg (Neg); Protein, Urine 3+ (Neg); Specific Gravity, Urine 1.015 (1.003-1.022); Urobilinogen, Urine NORM (Normal)
[2024-10-01 08:48] LABS: Bacteria Mod /hpf; Red Blood Cells, Urine 25-50 /hpf (0-2); Squamous Epithelial Cells Many /hpf (Few); White Blood Cells, Urine 0-2 /hpf (0-5)
[2024-10-01 08:51] LABS: BASOPHILS ABSOLUTE AUTO 0.06 K/mm3 (0.00-0.23); BASOPHILS PERCENT AUTO 0 % (0-2); EOSINOPHILS ABSOLUTE AUTO 0.39 K/mm3 (0.00-0.68); EOSINOPHILS PERCENT AUTO 1 % (0-6); Hematocrit 34.3 % (33.0-51.0); Hemoglobin 11.4 g/dL (11.5-16.0); IMMATURE GRAN ABSOLUTE AUTO 0.25 K/mm3 (0.00-0.10); IMMATURE GRAN PERCENT AUTO 1 % (0-1); LYMPHOCYTES PERCENT AUTO 10 % (21-46); MONOCYTES ABSOLUTE AUTO 0.78 K/mm3 (0.16-1.47); MONOCYTES PERCENT AUTO 3 % (4-13); Mean Corpuscular HGB 32.3 pg (26.0-34.0); Mean Corpuscular HGB Conc 33.2 g/dL (31.5-36.5); Mean Corpuscular Volume 97 fL (80-100); Mean Platelet Volume 9.7 fL (9.1-12.4); NEUTROPHILS ABSOLUTE AUTO 24.03 K/mm3 (1.96-9.15); NEUTROPHILS PERCENT AUTO 85 % (41-73); Platelet Count 240 K/mm3 (150-400); RDW Coefficient Variation 14.6 % (11.7-14.2); RDW Standard Deviation 52.1 fL (35.1-46.3); Red Blood Cell Count 3.53 M/mm3 (3.80-5.20); White Blood Cell Count 28.21 K/mm3 (4.00-11.30)
[2024-10-01 09:16] LABS: Albumin, Blood 2.6 g/dL (3.4-5.0); Albumin/Globulin Ratio 0.6 (0.8-1.8); Bilirubin, Total 0.2 mg/dL (0.1-1.0); Bun/Creatinine Ratio 16.6 (12.0-20.0); Calcium, Blood 8.9 mg/dL (8.5-10.1); Creatinine, Blood 0.9 mg/dL (0.40-1.00); Globulin, Blood 4.4 g/dL (2.2-4.0); Potassium, Blood 3.6 mmol/L (3.5-5.5)
[2024-10-01] MEDS ORDERED: Morphine Sulfate 4 MG/1 ML Injection IV PRN (10:15)
[2024-10-01] MEDS ORDERED: HYDROmorphone HCl/Pf 1MG SYR IV PRN ×2 (10:20→11:50)
[2024-10-01] MEDS ORDERED: Meropenem 1,000 MG in NS 100 ML IV SCH (12:03)
[2024-10-01] MEDS ORDERED: Vancomycin HCL 750 MG in NS 250 ML IV SCH (14:30)
[2024-10-01 15:31] VITALS: BP 125/75
[2024-10-01 15:37] LABS: CORONAVIRUS COVID-19 AG Negative (NEGATIVE); INFLUENZA A AG Negative (NEGATIVE); INFLUENZA B AG Negative (NEGATIVE)
[2024-10-01] MEDS ORDERED: Nicotine 7 MG PATCH TOP SCH (16:00)
[2024-10-01] MEDS ORDERED: Ibuprofen 600 MG Tab PO PRN (16:15)
[2024-10-01] MEDS ORDERED: Acetaminophen 325 MG TABLET PO PRN (16:15)
[2024-10-01 19:30] VITALS: BP 113/58
--- NOTE | 2024-10-01 20:11 | NUR ---
ARRIVAL PT ARRIVED TO UNIT AT APROX 1540 FROM ER. PT C/O PAIN IN PELVIC AREA UPON ARRIVAL BUT REPORTS TOLERABLE AT THAT TIME. AT APROX 1615 PT C/O OF PAIN INCREASING, MEDICATED WITH 1MG DIALUDID AT THAT TIME. DOES HAVE INCREASED PAIN TO PELVIC AREA WITH ANY MVMT OR BLADDER FULLNESS, SPOKE WITH DR JONES REGARDING POSSIBILITY OF WOMEN'S MINISTRY DIRECTOR, WILL START WITH TRYING 2MG DILAUDID Q4, FIRST DOSE TO BE GIVEN AT APROX 2015. PT AGREABLE WITH THIS PLAN. TOLERATING REGULAR DIET WITH NO N/V. PLAN IS TO CONTINUE IV ABX FOR AT LEAST 7 DAY IN HOSPITAL PER MD.
[2024-10-02 04:42] VITALS: BP 106/77
--- NOTE | 2024-10-02 05:42 | NUR ---
SHIFT SUMMARY S/P VAGINAL CELLULITIS. NO ACUTE CHANGES OVERNIGHT. VSS, TELE - NSR IN 70s. TOLERATING ORALS, DENIES N/V. VOIDING. IV FLUIDS/ABX PER EMAR. PT REPORTS PAIN TOLERABLE c Q4 2MG IV DILAUDID PER EMAR. AMB S/A R/T LINE/CORD MANAGEMENT. ANTICIPATED MIN 1 WEEK ADMIT. CALL LIGHT IN REACH, BED IN LOWEST POSITION, WILL REPORT TO DAY RN.
[2024-10-02 05:50] LABS: BASOPHILS ABSOLUTE AUTO 0.03 K/mm3 (0.00-0.23); BASOPHILS PERCENT AUTO 0 % (0-2); EOSINOPHILS ABSOLUTE AUTO 0.52 K/mm3 (0.00-0.68); EOSINOPHILS PERCENT AUTO 5 % (0-6); Hematocrit 31.8 % (33.0-51.0); Hemoglobin 10.5 g/dL (11.5-16.0); IMMATURE GRAN ABSOLUTE AUTO 0.06 K/mm3 (0.00-0.10); IMMATURE GRAN PERCENT AUTO 1 % (0-1); LYMPHOCYTES ABSOLUTE AUTO 2.91 K/mm3 (0.84-5.20); LYMPHOCYTES PERCENT AUTO 26 % (21-46); MONOCYTES ABSOLUTE AUTO 0.71 K/mm3 (0.16-1.47); MONOCYTES PERCENT AUTO 6 % (4-13); Mean Corpuscular Volume 97 fL (80-100); Mean Platelet Volume 9.9 fL (9.1-12.4); NEUTROPHILS ABSOLUTE AUTO 7.19 K/mm3 (1.96-9.15); NEUTROPHILS PERCENT AUTO 63 % (41-73); Platelet Count 260 K/mm3 (150-400); RDW Coefficient Variation 14.4 % (11.7-14.2); RDW Standard Deviation 51.8 fL (35.1-46.3); Red Blood Cell Count 3.28 M/mm3 (3.80-5.20); White Blood Cell Count 11.42 K/mm3 (4.00-11.30)
[2024-10-02 06:07] LABS: Albumin, Blood 2.1 g/dL (3.4-5.0); Albumin/Globulin Ratio 0.6 (0.8-1.8); Bilirubin, Total 0.3 mg/dL (0.1-1.0); Bun/Creatinine Ratio 12.4 (12.0-20.0); Calcium, Blood 8.5 mg/dL (8.5-10.1); Creatinine, Blood 0.81 mg/dL (0.40-1.00); Globulin, Blood 3.8 g/dL (2.2-4.0); Potassium, Blood 3.7 mmol/L (3.5-5.5); Total Protein, Blood 5.9 g/dL (6.4-8.2)
[2024-10-02 07:27] VITALS: BP 93/65
[2024-10-02] MEDS ORDERED: ValACYClovir HCL 500 MG Tab PO SCH (10:00)
[2024-10-02 13:51] LABS: Vancomycin, Trough 18.4 ug/mL (5.0-10.0)
[2024-10-02 15:56] VITALS: BP 107/72
--- NOTE | 2024-10-02 17:22 | NUR ---
SUMMARY NO ACUTE CHANGES T/O SHIFT. PT MEDICATED PER ORDERS FOR PAIN. PT REPORTED LAST DOSE OF PAIN MEDICATION DID NOT SEEM EFFECTIVE. PROVIDED KPAD FOR COMFORT. PT RESTING IN BED, VISITORS BEDSIDE. CALL LIGHT IN REACH.
[2024-10-02] MEDS ORDERED: Cyclobenzaprine HCl 10 MG Tab PO PRN (18:10)
[2024-10-02] MEDS ORDERED: HYDROmorphone HCl/Pf 1MG SYR IV PRN (18:10)
[2024-10-02 20:07] VITALS: BP 114/87
[2024-10-02] MEDS ORDERED: Mirtazapine 30 MG SoluTab PO SCH (21:00)
[2024-10-02] MEDS ORDERED: Lactobacil 2-S.Thermo-Bifido 1 1 Cap PO SCH (21:00)
[2024-10-02] MEDS ORDERED: NS 250 ML IV PRN (21:55)
[2024-10-03 04:10] VITALS: BP 118/77
--- NOTE | 2024-10-03 04:18 | NUR ---
SHIFT SUMMARY S/P VAGNIAL CELLULITIS. NO ACUTE CHANGES OVERNIGHT. VSS, TELE - NSR 80s, CONT BIOX IN USE. TOLERATING ORALS, DENIES N/V. VOIDING. IV ABX INFUSING PER EMAR. AMB IND TO SBA R/T CORD MANAGEMENT. PT REPORTS PAIN LOCALIZED TO L GROIN, REPORTS TOLERABLE c 2MG DILAUDID Q3P PER EMAR. CALL LIGHT IN REACH, BED IN LOWEST POSITION, WILL REPORT TO DAY RN.
[2024-10-03 05:55] LABS: BASOPHILS ABSOLUTE AUTO 0.02 K/mm3 (0.00-0.23); BASOPHILS PERCENT AUTO 0 % (0-2); EOSINOPHILS ABSOLUTE AUTO 0.41 K/mm3 (0.00-0.68); EOSINOPHILS PERCENT AUTO 5 % (0-6); Hematocrit 28.3 % (33.0-51.0); Hemoglobin 9.5 g/dL (11.5-16.0); IMMATURE GRAN ABSOLUTE AUTO 0.03 K/mm3 (0.00-0.10); IMMATURE GRAN PERCENT AUTO 0 % (0-1); LYMPHOCYTES ABSOLUTE AUTO 2.22 K/mm3 (0.84-5.20); LYMPHOCYTES PERCENT AUTO 25 % (21-46); MONOCYTES ABSOLUTE AUTO 0.75 K/mm3 (0.16-1.47); MONOCYTES PERCENT AUTO 9 % (4-13); Mean Corpuscular HGB 32.3 pg (26.0-34.0); Mean Corpuscular HGB Conc 33.6 g/dL (31.5-36.5); Mean Corpuscular Volume 96 fL (80-100); Mean Platelet Volume 9.7 fL (9.1-12.4); NEUTROPHILS ABSOLUTE AUTO 5.31 K/mm3 (1.96-9.15); NEUTROPHILS PERCENT AUTO 61 % (41-73); Platelet Count 290 K/mm3 (150-400); RDW Coefficient Variation 14.3 % (11.7-14.2); RDW Standard Deviation 50.4 fL (35.1-46.3); Red Blood Cell Count 2.94 M/mm3 (3.80-5.20); White Blood Cell Count 8.74 K/mm3 (4.00-11.30)
[2024-10-03 06:23] LABS: Albumin/Globulin Ratio 0.6 (0.8-1.8); Bilirubin, Total 0.1 mg/dL (0.1-1.0); Bun/Creatinine Ratio 11.1 (12.0-20.0); Calcium, Blood 8.4 mg/dL (8.5-10.1); Creatinine, Blood 0.81 mg/dL (0.40-1.00); Globulin, Blood 3.5 g/dL (2.2-4.0); Potassium, Blood 3.4 mmol/L (3.5-5.5); Total Protein, Blood 5.5 g/dL (6.4-8.2)
[2024-10-03] MEDS ORDERED: Potassium Chloride 20 MEQ TabCR PO ONE (06:40)
[2024-10-03 07:32] VITALS: BP 123/84
[2024-10-03] MEDS ORDERED: Potassium Chloride 10 Meq Tablet SA PO ONE (08:55)
[2024-10-03] MEDS ORDERED: HYDROcodone 5-APAP 325 TAB PO PRN (11:20)
[2024-10-03] MEDS ORDERED: HYDROmorphone HCl/Pf 1MG SYR IV PRN (11:20)
[2024-10-03 15:17] VITALS: BP 141/85
[2024-10-03 15:52] LABS: Hematocrit 31.4 % (33.0-51.0); Hemoglobin 10.6 g/dL (11.5-16.0)
[2024-10-03 16:13] LABS: Albumin, Blood 2.4 g/dL (3.4-5.0); Anion Gap 10 mmol/L (3-11); Blood Urea Nitrogen 8 mg/dL (8-24); Bun/Creatinine Ratio 11.2 (12.0-20.0); CO2, Blood 26 mmol/L (21-32); Calcium, Blood 9.2 mg/dL (8.5-10.1); Chloride, Blood 105 mmol/L (98-108); Creatinine, Blood 0.71 mg/dL (0.40-1.00); Glomerular Filtration Rate 117 (60-); Glucose, Blood 85 mg/dL (70-99); Magnesium, Blood 2.2 mg/dL (1.6-2.4); Phosphorus, Blood 3.6 mg/dL (2.5-4.9); Potassium, Blood 3.9 mmol/L (3.5-5.5); Sodium, Blood 137 mmol/L (136-145)
--- NOTE | 2024-10-03 16:41 | NUR ---
SUMMARY NO ACUTE CHANGES T/O SHIFT. VSS. PT PAINFUL AT TIMES. MEDICATED PER ORDERS FOR PAIN. IV ABX PER ORDERS. INDEPENDENT IN ROOM. CALL LIGHT IN REACH.
[2024-10-03 20:03] VITALS: BP 128/83
--- NOTE | 2024-10-04 04:03 | NUR ---
SHIFT SUMMARY S/P VAGNIAL CELLULITIS. NO ACUTE CHANGES OVERNIGHT. VSS, TELE - NSR 70s, CONT BIOX IN USE. TOLERATING ORALS, DENIES N/V. VOIDING. IV ABX INFUSING PER EMAR. AMB IND TO SBA R/T CORD MANAGEMENT. PT REPORTS PAIN TOLERABLE c ORAL PAIN MEDICATIONS & 2MG DILAUDID Q4P PER EMAR. CALL LIGHT IN REACH, BED IN LOWEST POSITION, WILL REPORT TO DAY RN.
[2024-10-04 04:17] VITALS: BP 118/70
[2024-10-04 05:34] LABS: BASOPHILS ABSOLUTE AUTO 0.02 K/mm3 (0.00-0.23); BASOPHILS PERCENT AUTO 0 % (0-2); EOSINOPHILS PERCENT AUTO 4 % (0-6); Hemoglobin 10.5 g/dL (11.5-16.0); IMMATURE GRAN ABSOLUTE AUTO 0.04 K/mm3 (0.00-0.10); IMMATURE GRAN PERCENT AUTO 0 % (0-1); LYMPHOCYTES ABSOLUTE AUTO 2.54 K/mm3 (0.84-5.20); LYMPHOCYTES PERCENT AUTO 26 % (21-46); MONOCYTES ABSOLUTE AUTO 0.73 K/mm3 (0.16-1.47); MONOCYTES PERCENT AUTO 8 % (4-13); Mean Corpuscular HGB 32.1 pg (26.0-34.0); Mean Corpuscular HGB Conc 33.9 g/dL (31.5-36.5); Mean Corpuscular Volume 95 fL (80-100); Mean Platelet Volume 9.2 fL (9.1-12.4); NEUTROPHILS ABSOLUTE AUTO 5.94 K/mm3 (1.96-9.15); NEUTROPHILS PERCENT AUTO 62 % (41-73); Platelet Count 331 K/mm3 (150-400); RDW Standard Deviation 48.9 fL (35.1-46.3); Red Blood Cell Count 3.27 M/mm3 (3.80-5.20); White Blood Cell Count 9.67 K/mm3 (4.00-11.30)
[2024-10-04 06:11] LABS: Bun/Creatinine Ratio 9.3 (12.0-20.0); Calcium, Blood 8.7 mg/dL (8.5-10.1); Creatinine, Blood 0.86 mg/dL (0.40-1.00); Potassium, Blood 3.6 mmol/L (3.5-5.5)
[2024-10-04] MEDS ORDERED: HYDROmorphone HCl/Pf 1MG SYR IV PRN ×2 (07:40→16:15)
[2024-10-04 07:49] VITALS: BP 116/77
[2024-10-04 14:40] LABS: Vancomycin, Trough 20.7 ug/mL (5.0-10.0)
[2024-10-04 15:45] VITALS: BP 119/62
[2024-10-04] MEDS ORDERED: Vancomycin HCL 1,000 MG in NS 250 ML IV SCH (17:00)
--- NOTE | 2024-10-04 17:44 | NUR ---
SUMMARY: PT IS ADMITTED FOR VAGINAL CELLULITIS. A/O , VSS TODAY. PT INDEP IN ROOM AND USING CALL LIGHT.PT CONTINUES TO REPORT 9/10 PAIN. 2 NARCO Q4 GIVEN AND 2MG DILAUDID FOR BREAK THROUGH. PT ENCOURAGED TO USE PO PAIN MANAGEMENT OVER IV. IV ANTIBIOTICS INFUSED.. PLAN IS FOR POSSIBLE PELVIC EXAM TOMORROW AND CONTINUED ANTIBIOTICS FOR 7 DAYS. NO ACUTE CONCERNS.
[2024-10-04 18:18] VITALS: BP 161/79
[2024-10-04 18:34] VITALS: BP 163/69
[2024-10-04 19:28] VITALS: BP 122/73
--- NOTE | 2024-10-05 04:07 | NUR ---
SHIFT SUMMARY; PATIENT SLEPT IN LONG INTERVALS, PRN PAIN MEDS JUST ONCE OF THIS ENTRY.VITALS STABLE, TELE SR 72.
[2024-10-05 05:16] VITALS: BP 127/86
[2024-10-05 07:19] VITALS: BP 120/72
[2024-10-05 08:40] LABS: Hematocrit 32.8 % (33.0-51.0); Mean Corpuscular HGB 31.3 pg (26.0-34.0); Mean Corpuscular HGB Conc 33.5 g/dL (31.5-36.5); Mean Corpuscular Volume 93 fL (80-100); Platelet Count 446 K/mm3 (150-400); RDW Coefficient Variation 13.7 % (11.7-14.2); RDW Standard Deviation 46.8 fL (35.1-46.3); Red Blood Cell Count 3.51 M/mm3 (3.80-5.20); White Blood Cell Count 13.36 K/mm3 (4.00-11.30)
[2024-10-05 08:55] LABS: Bun/Creatinine Ratio 14.6 (12.0-20.0); Calcium, Blood 9.1 mg/dL (8.5-10.1); Creatinine, Blood 0.76 mg/dL (0.40-1.00)
[2024-10-05 09:26] LABS: BAND PERCENT MAN 1 % (0-8); BASOPHILS ABSOLUTE MAN 0.26 K/mm3 (0.00-0.23); BASOPHILS PERCENT MAN 2 % (0-2); EOSINOPHILS ABSOLUTE MAN 0.93 K/mm3 (0.00-0.68); EOSINOPHILS PERCENT MAN 7 % (0-6); LYMPHOCYTES PERCENT MAN 15 % (21-46); MONOCYTES ABSOLUTE MAN 0.53 K/mm3 (0.16-1.47); MONOCYTES PERCENT MAN 4 % (4-13); MYELOCYTE ABSOLUTE MAN 0.13 K/mm3 (0.00-0.00); MYELOCYTE PERCENT MAN 1 % (0-0); NEUTROPHILS ABSOLUTE MAN 9.35 K/mm3 (1.96-9.15); PLASMA CELL ABSOLUTE MAN 0.13 K/mm3 (0.00-0.00); PLASMA CELLS PERCENT MAN 1 % (0-0); SEG NEUTROPHILS PERCENT MAN 69 % (41-73); TOTAL CELLS COUNTED 100
--- NOTE | 2024-10-05 09:46 | NUR ---
PT C/O 04/29 PAIN @ APROX 0940, MEDICATED PER EMAR. PT SALINE LOCKED BY PRIMARY RN. PT REQUESTING TO GO FOR A WALK OUTSIDE. TOLD PATIENTTHAT SHE MAY GO FOR A WALK AND REINFORCED THAT THIS IS A NON-SMOKING CAMPUS AND ALSO EDUCATED ON THE RISKS OF SMOKING WHILE WEARING A NICOTINE PATCH. PT VERBALIZED UNDERSTANDING. PT GIVEN NON-SLIP SOCKS. PRIMARY RN NOTIFIED.
[2024-10-05 14:25] VITALS: BP 119/74
--- NOTE | 2024-10-05 16:22 | NUR ---
SHIFT SUMMARY NO ACUTE CHANGES TODAY. WONDERLY DID A PELVIC EXAM AND TREATMENT PLAN IS TO CONT IV ABX AND POSSIBLY DO MORE IMAGINE PRIOR TO DISCHARGING. IV ABX INFUSING PER ORDERS. 2 NORCO/IBUPROFEN + 1MG IV DILAUDID FOR PAIN MANAGEMENT. BOB REG DIET. INDEP IN ROOM. VSS. USES CALL LIGHT APPROPRIATELY.
[2024-10-05 20:08] VITALS: BP 120/86
[2024-10-06 04:05] VITALS: BP 113/70
[2024-10-06 04:35] LABS: Hemoglobin 11.5 g/dL (11.5-16.0); Mean Corpuscular HGB 31.6 pg (26.0-34.0); Mean Corpuscular HGB Conc 33.8 g/dL (31.5-36.5); Mean Corpuscular Volume 93 fL (80-100); Mean Platelet Volume 8.9 fL (9.1-12.4); Platelet Count 535 K/mm3 (150-400); RDW Coefficient Variation 13.6 % (11.7-14.2); Red Blood Cell Count 3.64 M/mm3 (3.80-5.20); White Blood Cell Count 11.38 K/mm3 (4.00-11.30)
[2024-10-06 05:01] LABS: Anion Gap 10 mmol/L (3-11); Blood Urea Nitrogen 19 mg/dL (8-24); Bun/Creatinine Ratio 22.4 (12.0-20.0); CO2, Blood 25 mmol/L (21-32); Calcium, Blood 9.1 mg/dL (8.5-10.1); Chloride, Blood 105 mmol/L (98-108); Creatinine, Blood 0.85 mg/dL (0.40-1.00); Glomerular Filtration Rate 94 (60-); Glucose, Blood 91 mg/dL (70-99); Potassium, Blood 4.1 mmol/L (3.5-5.5); Sodium, Blood 136 mmol/L (136-145); Vancomycin, Trough 18.8 ug/mL (5.0-10.0)
[2024-10-06 05:04] LABS: BAND PERCENT MAN 2 % (0-8); BASOPHILS PERCENT MAN 0 % (0-2); EOSINOPHILS ABSOLUTE MAN 0.79 K/mm3 (0.00-0.68); EOSINOPHILS PERCENT MAN 7 % (0-6); LYMPHOCYTES % ATYPICAL MANUAL 5 % (0-0); LYMPHOCYTES ABSOLUTE MAN 3.52 K/mm3 (0.84-5.20); LYMPHOCYTES PERCENT MAN 26 % (21-46); MONOCYTES ABSOLUTE MAN 0.56 K/mm3 (0.16-1.47); MONOCYTES PERCENT MAN 5 % (4-13); MYELOCYTE ABSOLUTE MAN 0.11 K/mm3 (0.00-0.00); MYELOCYTE PERCENT MAN 1 % (0-0); NEUTROPHILS ABSOLUTE MAN 6.37 K/mm3 (1.96-9.15); SEG NEUTROPHILS PERCENT MAN 54 % (41-73); TOTAL CELLS COUNTED 100
--- NOTE | 2024-10-06 05:20 | NUR ---
SHIFT SUMMARY NO ACUTE CHANGES THIS SHIFT. AOx4. VSS. TELE NSR 72. PT DENIES ANY DISCHARGE OR BLEEDING. REPORT -05/30 LLQ ABD PAIN. PAIN MANAGED W/IBPROPHEN, 1MG DILAUDID & 2TAB NORCO, PT ABLE TO REST WELL. DENIES N/V, TOLERATING PO. CALL LIGHT IN REACH.
[2024-10-06 07:21] VITALS: BP 111/68
[2024-10-06 14:26] VITALS: BP 119/73
--- NOTE | 2024-10-06 16:36 | NUR ---
SHIFT SUMMARY NO ACUTE CHANGES. CONTINUING IV ABX PER ORDERS. NORCO/IBUPROFEN FOR PAIN CONTROL. IV DILAUDID X1 FOR BREAKTHROUGH. PT INDEP IN ROOM. DENIES VAGINAL DRAINAGE/BLEEDING/PAIN. VSS. USES CALL LIGHT APPROPRIATELY.
[2024-10-06 19:27] VITALS: BP 120/67
--- NOTE | 2024-10-07 01:31 | NUR ---
ASSUMED CARE @0100 REPORT FROM KATHLEEN ISSA. PATIENT IS SLEEPING AT THIS TIME CALL LIGHT IN REACH.
[2024-10-07 04:16] VITALS: BP 105/64
--- NOTE | 2024-10-07 04:29 | NUR ---
SUMMARY PATIENT RESTING AT THIS TIME, VANCO RUNNING IN POWER GLIDE FABY. DENIES PAIN AT THIS TIME. VSS, CALL LIGHT IN REACH.
[2024-10-07 05:06] LABS: Hematocrit 34.5 % (33.0-51.0); Hemoglobin 11.5 g/dL (11.5-16.0); Mean Corpuscular HGB 31.4 pg (26.0-34.0); Mean Corpuscular HGB Conc 33.3 g/dL (31.5-36.5); Mean Corpuscular Volume 94 fL (80-100); Mean Platelet Volume 8.8 fL (9.1-12.4); Platelet Count 572 K/mm3 (150-400); RDW Coefficient Variation 13.8 % (11.7-14.2); RDW Standard Deviation 47.3 fL (35.1-46.3); Red Blood Cell Count 3.66 M/mm3 (3.80-5.20); White Blood Cell Count 10.66 K/mm3 (4.00-11.30)
[2024-10-07 05:23] LABS: Bun/Creatinine Ratio 25.4 (12.0-20.0); Calcium, Blood 9.4 mg/dL (8.5-10.1); Creatinine, Blood 0.83 mg/dL (0.40-1.00); Potassium, Blood 4.1 mmol/L (3.5-5.5)
[2024-10-07 05:27] LABS: BASOPHILS PERCENT MAN 1 % (0-2); EOSINOPHILS ABSOLUTE MAN 0.63 K/mm3 (0.00-0.68); EOSINOPHILS PERCENT MAN 6 % (0-6); LYMPHOCYTES % ATYPICAL MANUAL 2 % (0-0); LYMPHOCYTES ABSOLUTE MAN 3.51 K/mm3 (0.84-5.20); LYMPHOCYTES PERCENT MAN 31 % (21-46); METAMYELOCYTE PERCENT MAN 1 % (0-0); MONOCYTES ABSOLUTE MAN 1.27 K/mm3 (0.16-1.47); MONOCYTES PERCENT MAN 12 % (4-13); NEUTROPHILS ABSOLUTE MAN 5.01 K/mm3 (1.96-9.15); SEG NEUTROPHILS PERCENT MAN 47 % (41-73); TOTAL CELLS COUNTED 100
[2024-10-07 07:34] VITALS: BP 108/72
[2024-10-07 15:32] VITALS: BP 125/89
--- NOTE | 2024-10-07 17:20 | NUR ---
SUMMARY C/O L LOWER ABD PAIN AND THEN R LOWER ABD PAIN MOST OF THE DAY, NORCO AND IBUPROFEN GIVEN FOR PAIN, K PAD TO ABD, HAD REPEAT CT OF ABD TODAY, INDEPENDENT IN ROOM, DENIES ANY VAGINAL BLEEDING, NO ACUTE CHANGES THIS SHIFT.
[2024-10-07 19:08] VITALS: BP 116/64
[2024-10-08] VITALS (16 sets, daily range): BP systolic 100–145; BP diastolic 57–92
--- NOTE | 2024-10-08 05:14 | NUR ---
SUMMARY PATIENT IS AOX4, IND IN ROOM, NPO SINCE 0200 FOR POSSIBLE SURGERY. IV ABX INFUSING. MEDICATED 1X FOR PAIN. RESTING AT THIS TIME.
[2024-10-08 10:32] LABS: Hemoglobin 9.5 g/dL (11.5-16.0); Mean Corpuscular HGB 32.3 pg (26.0-34.0); Mean Corpuscular HGB Conc 33.9 g/dL (31.5-36.5); Mean Corpuscular Volume 95 fL (80-100); Mean Platelet Volume 8.5 fL (9.1-12.4); Platelet Count 498 K/mm3 (150-400); RDW Coefficient Variation 13.7 % (11.7-14.2); RDW Standard Deviation 48.4 fL (35.1-46.3); Red Blood Cell Count 2.94 M/mm3 (3.80-5.20)
--- NOTE | 2024-10-08 10:37 | NUR ---
PT IN PACU FOR PRE OP
[2024-10-08] MEDS ORDERED: Lactated Ringer's 1,000 ML IV ONE (10:46)
[2024-10-08 10:51] LABS: BASOPHILS ABSOLUTE MAN 0.08 K/mm3 (0.00-0.23); BASOPHILS PERCENT MAN 1 % (0-2); EOSINOPHILS ABSOLUTE MAN 0.33 K/mm3 (0.00-0.68); EOSINOPHILS PERCENT MAN 4 % (0-6); LYMPHOCYTES ABSOLUTE MAN 2.07 K/mm3 (0.84-5.20); LYMPHOCYTES PERCENT MAN 25 % (21-46); MONOCYTES ABSOLUTE MAN 0.41 K/mm3 (0.16-1.47); MONOCYTES PERCENT MAN 5 % (4-13); NEUTROPHILS ABSOLUTE MAN 5.39 K/mm3 (1.96-9.15); SEG NEUTROPHILS PERCENT MAN 65 % (41-73); TOTAL CELLS COUNTED 100
--- NOTE | 2024-10-08 12:05 | NUR ---
PT TO PREOP
--- NOTE | 2024-10-08 12:21 | NUR ---
PT IN PACU, PRE OP.
[2024-10-08] MEDS ORDERED: Bupivacaine 0.5% HCl 5 MG/ML 30MLVIAL ONE (13:30)
[2024-10-08] MEDS ORDERED: FentaNYL Citrate 50 MCG/ML 2 ML Injection ONE ×4 (14:20→17:44)
[2024-10-08] MEDS ORDERED: Midazolam HCl 1MG / ML 2ML Vial ONE (14:20)
[2024-10-08] MEDS ORDERED: propofoL 20 ML IV ONE (14:20)
[2024-10-08] MEDS ORDERED: Rocuronium Bromide 10 MG/ML 5ML Injection IV ONE (14:23)
[2024-10-08] MEDS ORDERED: Ondansetron HCl 2 MG / ML 2ML Vial ONE (14:30)
[2024-10-08] MEDS ORDERED: Dexamethasone Sod Phos 10 MG/ML 1ML VIAL ONE (14:30)
[2024-10-08] MEDS ORDERED: Droperidol 5 mg/2 ml Vial IV PRN (15:40)
[2024-10-08] MEDS ORDERED: Labetalol HCL 5 MG/ML 4ML Injection (Single Dose) IV PRN (15:40)
[2024-10-08] MEDS ORDERED: FentaNYL Citrate 50 MCG/ML 2 ML Injection IV PRN ×3 (15:40→15:45)
[2024-10-08] MEDS ORDERED: HYDROmorphone HCl/Pf 1MG SYR IV PRN (15:40)
[2024-10-08] MEDS ORDERED: Ondansetron HCl 2 MG / ML 2ML Vial IV PRN (15:45)
[2024-10-08] MEDS ORDERED: HYDROmorphone HCl/Pf 1MG SYR ONE ×2 (15:46→17:52)
[2024-10-08] MEDS ORDERED: Sugammadex Sodium 200 MG/2ML SDV (100 MG/ML) ONE (16:28)
[2024-10-08] MEDS ORDERED: Ketorolac Tromethamine 15mg Vial IV PRN (17:35)
[2024-10-08] MEDS ORDERED: Ketorolac Tromethamine 30mg Vial ONE (17:44)
--- NOTE | 2024-10-08 19:47 | NUR ---
SHIFT SUMMARY/POST OP NOTE PT IS POD0 FOR LAP DIAGNOSTIC. PT IS ALERT, AMBULATING SBA TO BR, TOLERATING PO FLUIDS AND SNACKS. PT MEDICATED FOR PAIN SHORTLY AFTER ARRIVAL, IS CURRENTLY RESTING IN BED. DRESSING TO ABD X4 C/D/I. PAS ON. 1600 DOSE OF MERREM GIVEN LATE POST OP AFTER CONSULTING PHARMACY, 0000 DOSE TO BE GIVEN AT 0200 THEN RETURN TO NORMAL Q8 SCHEDULE PER PHARMACY. NOC NURSE NOTIFIED. NO VAG BLEEDING NOTED. VSS. PT USING CALL LIGHT APPROPRIATELY.
[2024-10-09 05:59] VITALS: BP 114/71
--- NOTE | 2024-10-09 07:24 | NUR ---
SHIFT SUMMARY; PATIENT SLEPT IN LONG IBNTERVALS, MEDICATED FOR PAIN AND I DID NOT NEED TO CALL DOCTOR FOR IV PAIN MEDS. NO NAUSEA, VOIDING AND AMB WITH 1 ASSIST.
[2024-10-09 07:28] VITALS: BP 109/62
[2024-10-09 08:49] LABS: BASOPHILS ABSOLUTE AUTO 0.04 K/mm3 (0.00-0.23); BASOPHILS PERCENT AUTO 0 % (0-2); EOSINOPHILS ABSOLUTE AUTO 0.27 K/mm3 (0.00-0.68); EOSINOPHILS PERCENT AUTO 2 % (0-6); Hematocrit 34.2 % (33.0-51.0); Hemoglobin 11.5 g/dL (11.5-16.0); IMMATURE GRAN ABSOLUTE AUTO 0.16 K/mm3 (0.00-0.10); IMMATURE GRAN PERCENT AUTO 1 % (0-1); LYMPHOCYTES ABSOLUTE AUTO 3.53 K/mm3 (0.84-5.20); LYMPHOCYTES PERCENT AUTO 22 % (21-46); MONOCYTES ABSOLUTE AUTO 0.72 K/mm3 (0.16-1.47); MONOCYTES PERCENT AUTO 5 % (4-13); Mean Corpuscular HGB 32.1 pg (26.0-34.0); Mean Corpuscular HGB Conc 33.6 g/dL (31.5-36.5); Mean Corpuscular Volume 96 fL (80-100); NEUTROPHILS ABSOLUTE AUTO 11.33 K/mm3 (1.96-9.15); NEUTROPHILS PERCENT AUTO 71 % (41-73); RDW Coefficient Variation 13.7 % (11.7-14.2); RDW Standard Deviation 48.6 fL (35.1-46.3); Red Blood Cell Count 3.58 M/mm3 (3.80-5.20); White Blood Cell Count 16.05 K/mm3 (4.00-11.30)
[2024-10-09 08:53] LABS: Mean Platelet Volume 9.3 fL (9.1-12.4); Platelet Count 593 K/mm3 (150-400)
[2024-10-09 09:02] LABS: Albumin, Blood 2.7 g/dL (3.4-5.0); Albumin/Globulin Ratio 0.6 (0.8-1.8); Bilirubin, Total 0.3 mg/dL (0.1-1.0); Bun/Creatinine Ratio 33.3 (12.0-20.0); Calcium, Blood 8.9 mg/dL (8.5-10.1); Creatinine, Blood 0.63 mg/dL (0.40-1.00); Globulin, Blood 4.2 g/dL (2.2-4.0); Potassium, Blood 3.8 mmol/L (3.5-5.5); Total Protein, Blood 6.9 g/dL (6.4-8.2)
--- NOTE | 2024-10-09 10:34 | NUR ---
MORNING NOTE THIS RN ASSUMED CARE AT APPROX 0715. PATIENT ALERT AND ORIENTED X4. VSS. POD 1 ROBOTIC ASSISTED LAP WITH LYSIS OF ADHESIONS - X4 LAP SITES WITH WOUND GLUE C/D/I. TOLERATING PO INTAKE. MEDICATED PER EMAR FOR 9/10 PAIN - REPORTING RELIEF. KPAD IN PLACE. REPORTS MINIMAL VAGINAL BLEEDING. UP TO RESTROOM INDEPENDENTLY TO VOID. CALL LIGHT IN REACH.
[2024-10-09] MEDS ORDERED: HYDROCODONE-AC1 EA19 PO (11:59)
[2024-10-09] MEDS ORDERED: METR500 PO (12:08)
[2024-10-09] MEDS ORDERED: AMOX-CLAV 875-1 EAC1 PO (12:08)
--- NOTE | 2024-10-09 12:20 | NUR ---
DISCHARGE NOTE NO CHANGES SINCE MORNING NOTE. WONDERLY ROUNDED ON PATIENT THIS MORNING - CLEARED TO DC HOME. HOSPITALIST CONTACTED - CLEARED TO DC. POD 1 ROBOTIC ASSISTED LAP W/ LYSIS OF ADHESIONS - X4 LAP SITES C/D/I W/ WOUND GLUE. TOLERATING PO INTAKE. SCANT VAGINAL BLEEDING. PAIN MANAGED WITH PRESCRIBED THERAPY. VOIDING. IV REMOVED. DC EDUCATION PROVIDED - PATIENT STATES UNDERSTANDING. HARD SCRIPTS WITH PATIENT. PATIENT TRANSFERRED OFF UNIT VIA WHEELCHAIR AT APPROX 1220. PERSONAL BELONGINGS WITH PATIENT.
== END 2024-10-09 12:27 | disposition home or self-care (01) | DRG 853 ==
LOC: ER 00:07 → ERHOLD 04:15 → SURS 04:15
PROVIDERS: Family Medicine Adult Medicine; Obstetrics & Gynecology; Student in an Organized Health Care Education/Training Program; ADMIT Internal Medicine
PROC: 0U914ZZ Drainage of Left Ovary, Percutaneous Endoscopic Approach (ICD-10-PCS; 2024-10-08)
PROC: 8E0W4CZ Robotic Assisted Procedure of Trunk Region, Percutaneous Endoscopic Approach (ICD-10-PCS; 2024-10-08)
PROC: 0UQG4ZZ Repair Vagina, Percutaneous Endoscopic Approach (ICD-10-PCS; principal; 2024-10-08 13:30)
DX: A41.9 Sepsis, unspecified organism (principal); N73.3 Female acute pelvic peritonitis; T81.31XA Disruption of external operation (surgical) wound, not elsewhere classified, initial encounter; N76.4 Abscess of vulva; R65.20 Severe sepsis without septic shock; E87.6 Hypokalemia; N83.292 Other ovarian cyst, left side; Z90.710 Acquired absence of both cervix and uterus; Z91.040 Latex allergy status; Z88.1 Allergy status to other antibiotic agents; E83.39 Other disorders of phosphorus metabolism; D64.9 Anemia, unspecified
CPT/HCPCS: 36415; 72193; 74177; 80048; 80053; 80069; 80202; 81001; 82248; 83605; 83735; 83880; 84100; 84145; 85014; 85018; 85025; 87040; 87086; 87428-QW; 93005; 93010; 94762; 96365-59; 96367; 96375; 99285-25; A9270; C1751; J0692; J1100; J1171; J1885; J2185; J2250; J2270; J2405; J2543; J2704; J3010; J3370; J7030; J7050; J7060; J7120; Q9967

== ENCOUNTER 2024-10-25 20:30 | Emergency (ER) | payer OTHER ==
[~2024-10-25] VITALS: Ht 152.4 cm; Wt 56.7 kg
[~2024-10-25 20:30] MED LIST changes: +AMOX-CLAV 875-1 EAC1 PO; +HYDROCODONE-AC1 EA19 PO
[2024-10-25 21:37] LABS: Hematocrit 38.3 % (33.0-51.0); Hemoglobin 13.2 g/dL (11.5-16.0); Mean Corpuscular HGB 31.7 pg (26.0-34.0); Mean Corpuscular HGB Conc 34.5 g/dL (31.5-36.5); Mean Corpuscular Volume 92 fL (80-100); Mean Platelet Volume 10.3 fL (9.1-12.4); Platelet Count 362 K/mm3 (150-400); RDW Coefficient Variation 14.1 % (11.7-14.2); RDW Standard Deviation 47.8 fL (35.1-46.3); Red Blood Cell Count 4.16 M/mm3 (3.80-5.20); White Blood Cell Count 11.03 K/mm3 (4.00-11.30)
[2024-10-25 21:55] LABS: Albumin, Blood 3.8 g/dL (3.4-5.0); Albumin/Globulin Ratio 0.8 (0.8-1.8); Bilirubin, Total 0.4 mg/dL (0.1-1.0); Bun/Creatinine Ratio 21.2 (12.0-20.0); Calcium, Blood 9.8 mg/dL (8.5-10.1); Creatinine, Blood 0.99 mg/dL (0.40-1.00); Globulin, Blood 4.5 g/dL (2.2-4.0); Potassium, Blood 3.7 mmol/L (3.5-5.5); Total Protein, Blood 8.3 g/dL (6.4-8.2)
[2024-10-25 22:04] LABS: BAND PERCENT MAN 1 % (0-8); BASOPHILS PERCENT MAN 0 % (0-2); EOSINOPHILS ABSOLUTE MAN 0.22 K/mm3 (0.00-0.68); EOSINOPHILS PERCENT MAN 2 % (0-6); LYMPHOCYTES ABSOLUTE MAN 4.96 K/mm3 (0.84-5.20); LYMPHOCYTES PERCENT MAN 45 % (21-46); MONOCYTES ABSOLUTE MAN 0.66 K/mm3 (0.16-1.47); MONOCYTES PERCENT MAN 6 % (4-13); NEUTROPHILS ABSOLUTE MAN 5.18 K/mm3 (1.96-9.15); SEG NEUTROPHILS PERCENT MAN 46 % (41-73); TOTAL CELLS COUNTED 100
[2024-10-25] MEDS ORDERED: Ketorolac Tromethamine 15mg Vial IV ONE (22:55)
[2024-10-25 23:01] LABS: Source, Urine Clean Catch
[2024-10-25 23:15] LABS: Bilirubin, Urine Neg (Neg); Blood, Urine Neg (Neg); Glucose Qualitative, Urine Neg (Neg); Ketones, Urine Neg (Neg); Leukocyte Esterase, Urine 1+ (Neg); Nitrite, Urine Neg (Neg); Protein, Urine 2+ (Neg); Urobilinogen, Urine 1+ (Normal)
[2024-10-25 23:22] LABS: Appearance, Urine Hazy (Clear); Color, Urine Yellow (P-Yellow)
[2024-10-25 23:23] LABS: Bacteria Mod /hpf; Calcium Oxalate Crystals Mod /hpf; Red Blood Cells, Urine 0-2 /hpf (0-2); Squamous Epithelial Cells Many /hpf (Few); White Blood Cells, Urine 0-2 /hpf (0-5)
[2024-10-26] MEDS ORDERED: IBU600 MG PO (00:49)
[2024-10-26 00:57] VITALS: BP 124/84
== END 2024-10-26 00:57 | disposition home or self-care (01) ==
LOC: ER 20:30
PROVIDERS: Emergency Medicine
DX: R10.32 Left lower quadrant pain (principal); R10.2 Pelvic and perineal pain; F17.200 Nicotine dependence, unspecified, uncomplicated; Z98.890 Other specified postprocedural states; Z91.040 Latex allergy status; Z88.1 Allergy status to other antibiotic agents; Z79.899 Other long term (current) drug therapy
CPT/HCPCS: 36415; 74177; 80053; 81001; 83605; 85025; 87040; 87086; 96374-59; 99284-25; J1885; Q9967

== ENCOUNTER 2024-11-19 16:29 | Emergency (ER) | payer OTHER ==
[~2024-11-19] VITALS: Ht 152.4 cm; Wt 56.7 kg
[~2024-11-19 16:29] MED LIST changes: +IBU600 MG PO
[2024-11-19 16:47] VITALS: BP 111/76
[2024-11-19] MEDS ORDERED: NS 1,000 ML IV SCH (17:05)
[2024-11-19] MEDS ORDERED: Ketorolac Tromethamine 15mg Vial IV ONE (17:05)
[2024-11-19 17:22] LABS: BASOPHILS ABSOLUTE AUTO 0.04 K/mm3 (0.00-0.23); BASOPHILS PERCENT AUTO 0 % (0-2); EOSINOPHILS ABSOLUTE AUTO 0.22 K/mm3 (0.00-0.68); EOSINOPHILS PERCENT AUTO 2 % (0-6); Hematocrit 38.6 % (33.0-51.0); Hemoglobin 12.6 g/dL (11.5-16.0); IMMATURE GRAN ABSOLUTE AUTO 0.03 K/mm3 (0.00-0.10); IMMATURE GRAN PERCENT AUTO 0 % (0-1); LYMPHOCYTES ABSOLUTE AUTO 3.13 K/mm3 (0.84-5.20); LYMPHOCYTES PERCENT AUTO 28 % (21-46); MONOCYTES ABSOLUTE AUTO 0.72 K/mm3 (0.16-1.47); MONOCYTES PERCENT AUTO 6 % (4-13); Mean Corpuscular HGB 31.5 pg (26.0-34.0); Mean Corpuscular HGB Conc 32.6 g/dL (31.5-36.5); Mean Corpuscular Volume 97 fL (80-100); NEUTROPHILS ABSOLUTE AUTO 7.26 K/mm3 (1.96-9.15); NEUTROPHILS PERCENT AUTO 64 % (41-73); Platelet Count 326 K/mm3 (150-400); RDW Coefficient Variation 13.3 % (11.7-14.2)
[2024-11-19 17:42] LABS: Alanine Aminotransfer (ALT/SGP 17 U/L (12-78); Albumin, Blood 3.4 g/dL (3.4-5.0); Albumin/Globulin Ratio 0.8 (0.8-1.8); Alk Phos 84 U/L (50-136); Anion Gap 8 mmol/L (3-11); Aspartate Aminotrans (AST/SGOT 16 U/L (12-37); Beta HCG, Quantitative, Serum <1 mIU/mL (0-3); Bilirubin, Total 0.3 mg/dL (0.1-1.0); Blood Urea Nitrogen 14 mg/dL (8-24); Bun/Creatinine Ratio 15.8 (12.0-20.0); CO2, Blood 29 mmol/L (21-32); Chloride, Blood 105 mmol/L (98-108); Creatinine, Blood 0.89 mg/dL (0.40-1.00); Globulin, Blood 4.2 g/dL (2.2-4.0); Glomerular Filtration Rate 89 (60-); Glucose, Blood 81 mg/dL (70-99); Potassium, Blood 3.8 mmol/L (3.5-5.5); Sodium, Blood 138 mmol/L (136-145); Total Protein, Blood 7.6 g/dL (6.4-8.2)
[2024-11-19] MEDS ORDERED: OxyCODONE 5 mg/Acetamin 325 mg TABLET PO ONE (18:15)
[2024-11-19] MEDS ORDERED: CefTRIAXone Sodium 2,000 MG in NS 100 ML IV ONE (18:15)
[2024-11-19] MEDS ORDERED: ONDA4ODT MM (18:18)
[2024-11-19] MEDS ORDERED: Cephalexin500 MG PO (18:18)
[2024-11-19] MEDS ORDERED: Percocet 5-3251 EACH PO (18:18)
== END 2024-11-19 18:37 | disposition home or self-care (01) ==
LOC: ER 16:29
PROVIDERS: Student in an Organized Health Care Education/Training Program
DX: L03.116 Cellulitis of left lower limb (principal); F17.200 Nicotine dependence, unspecified, uncomplicated; Z79.899 Other long term (current) drug therapy; Z91.040 Latex allergy status; Z88.1 Allergy status to other antibiotic agents
CPT/HCPCS: 72193; 80053; 84702; 85025; 96374-59; 96375; 99284-25; A9270; J0696; J1885; J7030; Q9967

== ENCOUNTER 2024-11-30 22:40 | Inpatient (IN) | payer OTHER ==
[~2024-11-30] VITALS: Ht 152.4 cm; Wt 54.4 kg
[~2024-11-30 22:40] MED LIST changes: +Cephalexin500 MG PO
[2024-11-30 23:15] LABS: Hematocrit 36.4 % (33.0-51.0); Hemoglobin 12.5 g/dL (11.5-16.0); Mean Corpuscular HGB 31.3 pg (26.0-34.0); Mean Corpuscular HGB Conc 34.3 g/dL (31.5-36.5); Mean Corpuscular Volume 91 fL (80-100); Platelet Count 347 K/mm3 (150-400); RDW Coefficient Variation 13.4 % (11.7-14.2); Red Blood Cell Count 3.99 M/mm3 (3.80-5.20); White Blood Cell Count 15.73 K/mm3 (4.00-11.30)
[2024-11-30 23:37] LABS: Albumin, Blood 3.5 g/dL (3.4-5.0); Albumin/Globulin Ratio 0.8 (0.8-1.8); Bilirubin, Total 0.2 mg/dL (0.1-1.0); Bun/Creatinine Ratio 16.9 (12.0-20.0); Calcium, Blood 9.5 mg/dL (8.5-10.1); Creatinine, Blood 0.77 mg/dL (0.40-1.00); Globulin, Blood 4.3 g/dL (2.2-4.0); Potassium, Blood 3.5 mmol/L (3.5-5.5); Total Protein, Blood 7.8 g/dL (6.4-8.2)
[2024-11-30 23:43] LABS: BASOPHILS PERCENT MAN 0 % (0-2); EOSINOPHILS ABSOLUTE MAN 0.15 K/mm3 (0.00-0.68); EOSINOPHILS PERCENT MAN 1 % (0-6); LYMPHOCYTES % ATYPICAL MANUAL 2 % (0-0); LYMPHOCYTES PERCENT MAN 47 % (21-46); MONOCYTES ABSOLUTE MAN 0.94 K/mm3 (0.16-1.47); MONOCYTES PERCENT MAN 6 % (4-13); NEUTROPHILS ABSOLUTE MAN 6.92 K/mm3 (1.96-9.15); SEG NEUTROPHILS PERCENT MAN 44 % (41-73); TOTAL CELLS COUNTED 100
[2024-12-01] MEDS ORDERED: Morphine Sulfate 4 MG/1 ML Injection ONE (00:02)
[2024-12-01] MEDS ORDERED: NS 1,000 ML IV SCH (00:05)
[2024-12-01] MEDS ORDERED: Morphine Sulfate 4 MG/1 ML Injection IV ONE ×2 (00:09→23:55)
[2024-12-01] MEDS ORDERED: Lactated Ringer's 1,000 ML IV ONE ×2 (00:55→23:55)
[2024-12-01 01:17] LABS: Source, Urine Clean Catch
[2024-12-01 01:24] LABS: Appearance, Urine Hazy (Clear); Bilirubin, Urine Neg (Neg); Blood, Urine Neg (Neg); Color, Urine Yellow (P-Yellow); Glucose Qualitative, Urine Neg (Neg); Ketones, Urine Neg (Neg); Leukocyte Esterase, Urine 2+ (Neg); Nitrite, Urine Neg (Neg); Protein, Urine 1+ (Neg); Urobilinogen, Urine NORM (Normal)
[2024-12-01 01:34] LABS: Amorphous Heavy (0-Heavy); Bacteria Mod /hpf; Squamous Epithelial Cells Few /hpf (Few)
[2024-12-01] MEDS ORDERED: HYDROmorphone HCl/Pf 1MG SYR IV ONE (02:30)
[2024-12-01] MEDS ORDERED: Piperacillin/Tazobactam Sod 4.5 GM in NS 100 ML IV ONE (02:50)
[2024-12-01] MEDS ORDERED: FLU VACC TS2024-25(6MOS UP)/PF 45 MCG/0.5 ML SYRINGE IM ONE (03:40)
[2024-12-01] MEDS ORDERED: Naloxone HCl 0.4MG / ML 1ML Vial IV PRN (03:40)
[2024-12-01] MEDS ORDERED: Ondansetron HCl 2 MG / ML 2ML Vial IV PRN (03:40)
[2024-12-01] MEDS ORDERED: Morphine Sulfate 4 MG/1 ML Injection IV PRN (03:40)
[2024-12-01] MEDS ORDERED: Acetaminophen 325 MG TABLET PO PRN (03:45)
[2024-12-01] MEDS ORDERED: Lactated Ringer's 1,000 ML IV SCH ×2 (04:00→17:00)
[2024-12-01 05:17] VITALS: BP 105/63
[2024-12-01 06:30] LABS: Hematocrit 35.1 % (33.0-51.0); Hemoglobin 11.2 g/dL (11.5-16.0); Mean Corpuscular HGB 30.1 pg (26.0-34.0); Mean Corpuscular HGB Conc 31.9 g/dL (31.5-36.5); Mean Corpuscular Volume 94 fL (80-100); Mean Platelet Volume 10.8 fL (9.1-12.4); Platelet Count 296 K/mm3 (150-400); RDW Coefficient Variation 13.5 % (11.7-14.2); RDW Standard Deviation 46.6 fL (35.1-46.3); Red Blood Cell Count 3.72 M/mm3 (3.80-5.20); White Blood Cell Count 12.93 K/mm3 (4.00-11.30)
[2024-12-01 06:48] LABS: International Normalized Ratio 0.94; Prothrombin Time Results 10.1 Sec (9.7-11.5)
[2024-12-01 07:00] LABS: Albumin, Blood 3.1 g/dL (3.4-5.0); Albumin/Globulin Ratio 0.9 (0.8-1.8); Bilirubin, Total 0.3 mg/dL (0.1-1.0); Calcium, Blood 8.9 mg/dL (8.5-10.1); Creatinine, Blood 0.86 mg/dL (0.40-1.00); Globulin, Blood 3.5 g/dL (2.2-4.0); Magnesium, Blood 2.4 mg/dL (1.6-2.4); Potassium, Blood 3.6 mmol/L (3.5-5.5); Total Protein, Blood 6.6 g/dL (6.4-8.2)
[2024-12-01 07:14] VITALS: BP 114/63
[2024-12-01 07:49] LABS: BASOPHILS ABSOLUTE MAN 0.12 K/mm3 (0.00-0.23); BASOPHILS PERCENT MAN 1 % (0-2); EOSINOPHILS ABSOLUTE MAN 0.77 K/mm3 (0.00-0.68); EOSINOPHILS PERCENT MAN 6 % (0-6); LYMPHOCYTES % ATYPICAL MANUAL 1 % (0-0); LYMPHOCYTES ABSOLUTE MAN 5.94 K/mm3 (0.84-5.20); LYMPHOCYTES PERCENT MAN 45 % (21-46); MONOCYTES ABSOLUTE MAN 0.38 K/mm3 (0.16-1.47); MONOCYTES PERCENT MAN 3 % (4-13); NEUTROPHILS ABSOLUTE MAN 5.68 K/mm3 (1.96-9.15); SEG NEUTROPHILS PERCENT MAN 44 % (41-73); TOTAL CELLS COUNTED 100
[2024-12-01] MEDS ORDERED: Piperacillin/Tazobactam Sod 4.5 GM in NS 100 ML IV SCH (08:00)
[2024-12-01 08:04] LABS: Percent Saturation 8.9 % (15.0-50.0)
[2024-12-01] MEDS ORDERED: NS 250 ML IV PRN (08:25)
[2024-12-01] MEDS ORDERED: Lactobacil 2-S.Thermo-Bifido 1 1 Cap PO SCH (09:00)
[2024-12-01] MEDS ORDERED: HYDROmorphone HCl 2 MG Tab PO PRN (09:15)
[2024-12-01] MEDS ORDERED: OxyCODONE 5 mg/Acetamin 325 mg TABLET PO PRN (12:05)
[2024-12-01] MEDS ORDERED: HYDROmorphone HCl/Pf 1MG SYR IV PRN (12:05)
--- NOTE | 2024-12-01 12:30 | NUR ---
SHIFT SUMMARY AND TRANSFER TO SURGICAL FLOOR PATIENT ALERT AND INTERACTIVE. PATIENT AMBULATING INDEPENDENTLY IN THE ROOM. PATIENT CONTINUES TO HAVE PAIN. PATIENT MEDICATED PER NOV. DR CARLOS CONSULTED AND STATED NO SURGERY AT THIS TIME. PATIENT TRANSFERED TO SURGICAL FLOOR. REPORT GIVEN. PATIENT TAKEN DOWN VIA WHEELCHAIR TO SURGICAL FLOOR WITH BELONGINGS. ROOM CHECKED PRIOR TO TRANSFER.
[2024-12-01 14:15] VITALS: BP 97/56
[2024-12-01] MEDS ORDERED: Ferrous Sulfate 325 MG Tab PO SCH (15:00)
[2024-12-01] MEDS ORDERED: Nicotine 7 MG PATCH TOP SCH (17:00)
--- NOTE | 2024-12-01 18:17 | NUR ---
SHIFT SUMMARY PATIENT IS AOX4, AND IND. IN ROOM. TOLERATING REG DIET, ADMITTED FOR IV ABX. MEDICATED FOR PAIN PER MAR. VITAL SIGNS STABLE. DENIES NAUSEA AT THIS TIME. CALLS APPROPRIATELY.
[2024-12-01 19:42] VITALS: BP 90/52
[2024-12-01 19:44] VITALS: BP 96/52
[2024-12-02 05:05] VITALS: BP 93/59
--- NOTE | 2024-12-02 05:08 | NUR ---
SHIFT SUMMARY PT HAS RESTED T/O THE NIGHT. ABD PAIN MANAGED WITH MEDS PER EMAR. PT DOES NOT REPORT NAUSEA, APPETITE GOOD. IV ANTIBIOTICS. PT HAS BEEN INDEPENDENT IN THE ROOM. PLAN OF CARE REMAINS UNCHANGED. BED IN LOWEST POSITION, CALL LIGHT WITHIN REACH.
[2024-12-02 07:32] VITALS: BP 100/63
[2024-12-02 08:06] VITALS: BP 108/65
--- NOTE | 2024-12-02 09:02 | NUR ---
NOTIFIED DR. YANES THIS AM OF INTERMITTENT BRADYCARDIA IN THE 40'S. NO ORDERS RECIEVED, PT IS ASYMPTOMATIC, AWAKE AND ALERT. DENIES CHEST PAIN/SOB.
[2024-12-02 09:57] LABS: BASOPHILS ABSOLUTE AUTO 0.04 K/mm3 (0.00-0.23); BASOPHILS PERCENT AUTO 0 % (0-2); EOSINOPHILS ABSOLUTE AUTO 0.42 K/mm3 (0.00-0.68); EOSINOPHILS PERCENT AUTO 4 % (0-6); IMMATURE GRAN ABSOLUTE AUTO 0.03 K/mm3 (0.00-0.10); IMMATURE GRAN PERCENT AUTO 0 % (0-1); LYMPHOCYTES ABSOLUTE AUTO 2.63 K/mm3 (0.84-5.20); LYMPHOCYTES PERCENT AUTO 27 % (21-46); MONOCYTES ABSOLUTE AUTO 0.58 K/mm3 (0.16-1.47); MONOCYTES PERCENT AUTO 6 % (4-13); Mean Corpuscular HGB 31.3 pg (26.0-34.0); Mean Corpuscular HGB Conc 33.3 g/dL (31.5-36.5); Mean Corpuscular Volume 94 fL (80-100); Mean Platelet Volume 10.8 fL (9.1-12.4); NEUTROPHILS ABSOLUTE AUTO 6.16 K/mm3 (1.96-9.15); NEUTROPHILS PERCENT AUTO 62 % (41-73); Platelet Count 337 K/mm3 (150-400); RDW Coefficient Variation 13.6 % (11.7-14.2); RDW Standard Deviation 46.5 fL (35.1-46.3); Red Blood Cell Count 3.83 M/mm3 (3.80-5.20); White Blood Cell Count 9.86 K/mm3 (4.00-11.30)
[2024-12-02 10:14] LABS: Bun/Creatinine Ratio 12.1 (12.0-20.0); Creatinine, Blood 1.07 mg/dL (0.40-1.00); Potassium, Blood 4.2 mmol/L (3.5-5.5)
[2024-12-02] MEDS ORDERED: HYDROmorphone HCl/Pf 1MG SYR IV PRN (10:45)
[2024-12-02] MEDS ORDERED: Lactated Ringer's 1,000 ML IV SCH (11:35)
[2024-12-02 14:19] VITALS: BP 105/64
--- NOTE | 2024-12-02 17:59 | NUR ---
SHIFT SUMMARY PT IS A/OX4, IND TO BATHROOM. TOLERATING PO DIET, FLUIDS, VOIDING, WAITING FOR BM FOR STOOL SAMPLE LAST BM GOT FLUSHED. PAIN HAS IMPROVED THROUGHOUT SHIFT, PAIN NOW MANAGED W/ PO PAIN MEDS PER EMAR. PT TO HAVE CT DONE TONIGHT. VSS. LEFT MESSAGE W/ WONDERLY TO CONSULT W/ PT. PT RESTING IN BED, CALL LIGHT IN REACH.
[2024-12-02 19:31] VITALS: BP 98/68
[2024-12-02 22:49] LABS: Adenovirus F 40/41 Not Detected (NOT DETECT); Astrovirus Not Detected (NOT DETECT); Campylobacter Sp Not Detected (NOT DETECT); Cryptosporidium Not Detected (NOT DETECT); Cyclospora Cayetanensis Not Detected (NOT DETECT); E. Coli O157 Not Detected (NOT DETECT); Entamoeba Histolytica Not Detected (NOT DETECT); Enteroaggregative E. coli-EAEC Not Detected (NOT DETECT); Enteropathogenic E. coli-EPEC Not Detected (NOT DETECT); Enterotoxigenic E. coli-ETEC Not Detected (NOT DETECT); Giardia Lamblia Not Detected (NOT DETECT); Norovirus GI/GII Not Detected (NOT DETECT); Plesiomonas Shigelloides Not Detected (NOT DETECT); Rotavirus A Not Detected (NOT DETECT); Salmonella Sp Not Detected (NOT DETECT); Sapovirus Not Detected (NOT DETECT); Shiga Toxin-prod E. coli-STEC Not Detected (NOT DETECT); Shigella/Enteroin E. coli-EIEC Not Detected (NOT DETECT); Vibrio Cholerae Not Detected (NOT DETECT); Vibrio Sp Not Detected (NOT DETECT); Yersinia Enterocolitica Not Detected (NOT DETECT)
--- NOTE | 2024-12-03 01:12 | NUR ---
CDIFF POSITIVE PT TESTED POSITIVE FOR CDIFF. DR. DUMONT CALLED AND NOTIFIED, DR DUMONT TO PLACE ORDER FOR MIRZA MARTINEZ.
[2024-12-03] MEDS ORDERED: Vancomycin HCl 125 MG Cap PO SCH (02:00)
[2024-12-03 02:27] VITALS: BP 103/70
--- NOTE | 2024-12-03 05:54 | NUR ---
SHIFT SUMMARY PT HAS RESTED T/O THE NIGHT. PAIN MANAGED PER EMAR. IV ANTIBIOTICS CONTINUED. CT DONE. STOOL SAMPLE COLLECTED AND SENT, POSITIVE FOR CDIFF AND IS NOW ON PO VANCO. ISOLATION PRECAUTIONS IN PLACE. PT HAS BEEN INDEPENDENT IN ROOM. APPEITIE GOOD, TOLERATING PO INTAKE. BED IN LOWEST POSITION, CALL LIGHT WITHIN REACH.
[2024-12-03 07:09] VITALS: BP 115/75
[2024-12-03 14:35] VITALS: BP 105/63
[2024-12-03 15:02] LABS: BASOPHILS ABSOLUTE AUTO 0.05 K/mm3 (0.00-0.23); BASOPHILS PERCENT AUTO 0 % (0-2); EOSINOPHILS ABSOLUTE AUTO 0.25 K/mm3 (0.00-0.68); EOSINOPHILS PERCENT AUTO 2 % (0-6); Hematocrit 37.4 % (33.0-51.0); Hemoglobin 12.5 g/dL (11.5-16.0); IMMATURE GRAN ABSOLUTE AUTO 0.03 K/mm3 (0.00-0.10); IMMATURE GRAN PERCENT AUTO 0 % (0-1); LYMPHOCYTES ABSOLUTE AUTO 3.32 K/mm3 (0.84-5.20); LYMPHOCYTES PERCENT AUTO 29 % (21-46); MONOCYTES ABSOLUTE AUTO 0.63 K/mm3 (0.16-1.47); MONOCYTES PERCENT AUTO 6 % (4-13); Mean Corpuscular HGB 31.2 pg (26.0-34.0); Mean Corpuscular HGB Conc 33.4 g/dL (31.5-36.5); Mean Corpuscular Volume 93 fL (80-100); Mean Platelet Volume 10.3 fL (9.1-12.4); NEUTROPHILS ABSOLUTE AUTO 7.19 K/mm3 (1.96-9.15); NEUTROPHILS PERCENT AUTO 63 % (41-73); Platelet Count 366 K/mm3 (150-400); RDW Coefficient Variation 13.1 % (11.7-14.2); RDW Standard Deviation 44.9 fL (35.1-46.3); Red Blood Cell Count 4.01 M/mm3 (3.80-5.20); White Blood Cell Count 11.47 K/mm3 (4.00-11.30)
[2024-12-03 15:25] LABS: Albumin, Blood 3.1 g/dL (3.4-5.0); Albumin/Globulin Ratio 0.8 (0.8-1.8); Bilirubin, Total 0.2 mg/dL (0.1-1.0); Bun/Creatinine Ratio 9.6 (12.0-20.0); Calcium, Blood 9.1 mg/dL (8.5-10.1); Creatinine, Blood 1.46 mg/dL (0.40-1.00); Globulin, Blood 4.1 g/dL (2.2-4.0); Magnesium, Blood 2.3 mg/dL (1.6-2.4); Potassium, Blood 3.9 mmol/L (3.5-5.5); Total Protein, Blood 7.2 g/dL (6.4-8.2)
[2024-12-03] MEDS ORDERED: Lactated Ringer's 1,000 ML IV SCH (16:00)
--- NOTE | 2024-12-03 17:54 | NUR ---
PATIENT IS ALERT AND ORIENTED AND COOPERATIVE WITH CARE. C/O PAIN AND MEDICATED PER EMAR. IND IN THE ROOM. TOLERATING A REGULAR DIET. ON RA. VSS. WILL CONTINUE TO MONITOR
[2024-12-03 19:01] VITALS: BP 123/83
[2024-12-03] MEDS ORDERED: Mirtazapine 30 MG Tab PO SCH (21:00)
[2024-12-04 04:45] VITALS: BP 98/64
[2024-12-04 04:50] LABS: BASOPHILS ABSOLUTE AUTO 0.06 K/mm3 (0.00-0.23); BASOPHILS PERCENT AUTO 1 % (0-2); EOSINOPHILS ABSOLUTE AUTO 0.37 K/mm3 (0.00-0.68); EOSINOPHILS PERCENT AUTO 5 % (0-6); Hematocrit 34.3 % (33.0-51.0); Hemoglobin 11.4 g/dL (11.5-16.0); IMMATURE GRAN ABSOLUTE AUTO 0.02 K/mm3 (0.00-0.10); IMMATURE GRAN PERCENT AUTO 0 % (0-1); LYMPHOCYTES ABSOLUTE AUTO 3.96 K/mm3 (0.84-5.20); LYMPHOCYTES PERCENT AUTO 48 % (21-46); MONOCYTES ABSOLUTE AUTO 0.54 K/mm3 (0.16-1.47); MONOCYTES PERCENT AUTO 7 % (4-13); Mean Corpuscular HGB 31.3 pg (26.0-34.0); Mean Corpuscular HGB Conc 33.2 g/dL (31.5-36.5); Mean Corpuscular Volume 94 fL (80-100); Mean Platelet Volume 10.5 fL (9.1-12.4); NEUTROPHILS ABSOLUTE AUTO 3.34 K/mm3 (1.96-9.15); NEUTROPHILS PERCENT AUTO 40 % (41-73); Platelet Count 344 K/mm3 (150-400); RDW Coefficient Variation 13.1 % (11.7-14.2); RDW Standard Deviation 45.2 fL (35.1-46.3); Red Blood Cell Count 3.64 M/mm3 (3.80-5.20); White Blood Cell Count 8.29 K/mm3 (4.00-11.30)
[2024-12-04 05:10] LABS: Bun/Creatinine Ratio 13.5 (12.0-20.0); Calcium, Blood 8.6 mg/dL (8.5-10.1); Creatinine, Blood 0.97 mg/dL (0.40-1.00); Potassium, Blood 3.4 mmol/L (3.5-5.5)
[2024-12-04] MEDS ORDERED: Potassium Chloride 10 Meq Tablet SA PO ONE ×2 (05:21→08:15)
--- NOTE | 2024-12-04 05:36 | NUR ---
PT A&O X4 VS WNL WITH EXCEPTION OF HR, RUNS IN 30'S WITH SLEEP. PT INDEPENDENT WITH MOBILITY, PAIN IN LOWER ABDOMEN, MEDICATED WITH PERCOCET 1 TAB, X2 THIS SHIFT, AND HYDROMORPHONE X1 IVP. PT DID REQUIRE ZOFRAN X1 D/T NAUSEA AFTER PO PAIN MED AND PO ANTIBIOTICS AT HS.
[2024-12-04 07:25] VITALS: BP 103/63
--- NOTE | 2024-12-04 07:55 | NUR ---
PHONE CALL TO DR. AUGUSTIN - PT'S HEART RATE IS DROPPING TO 36/38 VIA PULSE OX, THIS WAS CONFIRMED MANUALLY BY THIS RN. PT DENIES CHEST PAIN. SHE INDEPENDENTLY AMBULATED TO THE BATHROOM AND DENIED DIZZINESS. SHE IS RATING PAIN 10/10 IN HER LLQ. REQUESTING IV DILAUDID. RN CALLED DR. AUGUSTIN TO UPDATE, WILL PUT IN ORDERS FOR TELEMETRY. HOLD OFF ON PAIN MEDICATION AT THIS TIME. TO UPDATE ORDERS.
[2024-12-04] MEDS ORDERED: Ketorolac Tromethamine 30mg Vial IV ONE (08:00)
[2024-12-04] MEDS ORDERED: Potassium Chloride 20 MEQ in NS 90 ML IV ONE (08:20)
[2024-12-04] MEDS ORDERED: HYDROmorphone HCl/Pf 1MG SYR IV PRN (10:50)
[2024-12-04] MEDS ORDERED: Ketorolac Tromethamine 30mg Vial IV PRN (10:55)
[2024-12-04 11:16] VITALS: BP 139/92
[2024-12-04 15:39] VITALS: BP 109/75
--- NOTE | 2024-12-04 15:43 | NUR ---
PT C/O RLQ PAIN. STATES THIS PAIN IS IN A DIFFERENT SPOT THEN ADMISSION. PT HAS INCREASED TENDERNESS W/PALPATION. NOTIFIED WHO WILL COME EVAL PT.
--- NOTE | 2024-12-04 17:49 | NUR ---
SHIFT SUMMARY, VICKIE IS HERE FOR SIGMOID COLLITIS. SHE IS REPORTING PAIN 7/10 TO LLQ, AND SOMETIMES RADIATING TO HER BACK. THIS MORNING SHE WAS BRADYING DOWN TO 36-38, WITH NO C/O CHEST PAIN, SOB, OR DIZZINESS WITH STANDING. TELEMETRY ADDED, SINUS BRYANT IN THE 40'S WITH A FEW DIPS INTO THE 36-38 RANGE. PAIN MEDICATION HAS BEEN TITRATED TO MANAGE PAIN WHILE AVOIDING BRADYCARDIA. 20G TO THE LFA. PT IS ANXIOUS REGARDING PAIN. SHE IS CALMER WHEN OFFERED SNACKS, AND WHEN HER SIGNIFICANT OTHER VISITED. SHE IS PLEASANT AND COOPERATIVE WITH CARE. NO VAGINAL BLEEDING NOTED.
--- NOTE | 2024-12-04 18:20 | NUR ---
ASSUMPTION OF CARE THIS RN ASSUMED CARE AT APPROX 1800. NO ACUTE CHANGES SINCE MARCIA RNs SHIFT SUMMARY NOTE. CURRENTLY EATING DINNER - DENIES PAIN OR OTHER NEEDS AT THIS TIME. CALL LIGHT IN REACH.
[2024-12-04 19:20] VITALS: BP 110/74
[2024-12-04] MEDS ORDERED: MetroNIDAZOLE 500 MG Tab PO SCH (21:00)
[2024-12-05 00:13] VITALS: BP 107/64
[2024-12-05 04:41] VITALS: BP 105/71
--- NOTE | 2024-12-05 06:00 | NUR ---
SHIFT SUMMARY NOC. PT ADMIT FOR LEFT SIDED COLITIS c ABSCESS. PT MEDICATED FOR PAIN THIS SHIFT AND REPORTED RELIEF. PT VOIDING URINE, SAMPLE COLLECTED FOR LAB. LAB SAMPLE INSUFFICIENT D/T LARGE SIZE. SAMPLE TO BE 30ML. PT TOLERATING PO INTAKE, DENIES N/V. TELEMETRY INTACT WITH NO REPORTED EVENTS. PT CONTINUES TO BE SINUS BRYANT. DENIES DIZZINESS. WILL GIVE REPORT TO ONCOMING SHIFT RN.
[2024-12-05 07:09] VITALS: BP 98/57
[2024-12-05 07:30] LABS: BASOPHILS ABSOLUTE AUTO 0.04 K/mm3 (0.00-0.23); BASOPHILS PERCENT AUTO 0 % (0-2); EOSINOPHILS ABSOLUTE AUTO 0.42 K/mm3 (0.00-0.68); EOSINOPHILS PERCENT AUTO 4 % (0-6); Hematocrit 37.4 % (33.0-51.0); Hemoglobin 12.3 g/dL (11.5-16.0); IMMATURE GRAN ABSOLUTE AUTO 0.02 K/mm3 (0.00-0.10); IMMATURE GRAN PERCENT AUTO 0 % (0-1); LYMPHOCYTES ABSOLUTE AUTO 3.35 K/mm3 (0.84-5.20); LYMPHOCYTES PERCENT AUTO 34 % (21-46); MONOCYTES ABSOLUTE AUTO 0.73 K/mm3 (0.16-1.47); MONOCYTES PERCENT AUTO 7 % (4-13); Mean Corpuscular HGB 30.9 pg (26.0-34.0); Mean Corpuscular HGB Conc 32.9 g/dL (31.5-36.5); Mean Corpuscular Volume 94 fL (80-100); Mean Platelet Volume 10.2 fL (9.1-12.4); NEUTROPHILS ABSOLUTE AUTO 5.24 K/mm3 (1.96-9.15); NEUTROPHILS PERCENT AUTO 54 % (41-73); Platelet Count 362 K/mm3 (150-400); RDW Coefficient Variation 13.2 % (11.7-14.2); RDW Standard Deviation 45.1 fL (35.1-46.3); Red Blood Cell Count 3.98 M/mm3 (3.80-5.20)
[2024-12-05 07:44] LABS: Bun/Creatinine Ratio 17.4 (12.0-20.0); Calcium, Blood 8.9 mg/dL (8.5-10.1); Creatinine, Blood 1.09 mg/dL (0.40-1.00); Potassium, Blood 4.1 mmol/L (3.5-5.5)
[2024-12-05] MEDS ORDERED: Enoxaparin 40 MG/0.4 ML SYR SC SCH (09:00)
--- NOTE | 2024-12-05 10:02 | NUR ---
MORNING NOTE THIS RN ASSUMED CARE AT APPROX 0715. PATIENT ALERT AND ORIENTED X4. INDEPENDENT IN ROOM. COMMUNICATES NEEDS EFFECTIVELY. TELEMETRY SHOWING SINUS 60s. SINUS BRYANT WITH SLEEP 30s-40s. BASELINE HR PER PATIENT. SBP 90s. MAP >65. ON ROOM AIR, SATs >90%. DENIES SOB. L SIDED COLITIS W/ ABSCESS - MANAGING PAIN PER EMAR. PELVIC EXAM PERFORMED BY WONDERLY THIS MORNING. VOIDING. DENIES EPISODES OF LOOSE STOOLS. CALL LIGHT IN REACH.
--- NOTE | 2024-12-05 10:45 | NUR ---
REPORT GIVEN TO PEGGY ISSA TO ASSUME CARE AT THIS TIME
--- NOTE | 2024-12-05 10:54 | NUR ---
ASSUMPTION OF CARE assumed care of pt. Report received from Otis/MAEGAN.
[2024-12-05 11:39] LABS: Chlamydia Trachomatis Urine NOT DETECTED (NOT DETECT); Neisseria Gonorrhoea Urine NOT DETECTED (NOT DETECT)
[2024-12-05] MEDS ORDERED: FERSU300 PO (12:45)
[2024-12-05] MEDS ORDERED: METR500 PO (12:46)
[2024-12-05] MEDS ORDERED: Nicoderm Cq1 EACH TOP (12:46)
[2024-12-05] MEDS ORDERED: Percocet 5-3251 EACH PO (12:47)
[2024-12-05] MEDS ORDERED: VANCOCIN HCL125 MG PO (12:48)
[2024-12-05] MEDS ORDERED: VISBIOME 112.51 EACH PO (12:48)
[2024-12-05 18:43] LABS: CALPROTECTIN,FECAL 13 ug/g (<=49)
[2024-12-06 01:53] LABS: 25-HYDROXYVITAMIN D2 <1.0 ng/mL; 25-HYDROXYVITAMIN D2 D3 TOTAL 28.8 ng/mL (30.0-80.0); 25-HYDROXYVITAMIN D3 28.8 ng/mL
== END 2024-12-05 13:37 | disposition home or self-care (01) | DRG 871 ==
LOC: ER 22:40 → SURS 12-01 03:37 → ERHOLD 12-01 03:37 → MEDS 12-01 03:37 → SURS 12-01 13:17
PROVIDERS: Family Medicine; Internal Medicine; Student in an Organized Health Care Education/Training Program; ADMIT Student in an Organized Health Care Education/Training Program
DX: A41.9 Sepsis, unspecified organism (principal); K65.1 Peritoneal abscess; K51.30 Ulcerative (chronic) rectosigmoiditis without complications; K57.20 Diverticulitis of large intestine with perforation and abscess without bleeding; A04.72 Enterocolitis due to Clostridium difficile, not specified as recurrent; N39.0 Urinary tract infection, site not specified; F12.10 Cannabis abuse, uncomplicated; F43.10 Post-traumatic stress disorder, unspecified; F15.10 Other stimulant abuse, uncomplicated; D50.9 Iron deficiency anemia, unspecified; N83.292 Other ovarian cyst, left side; R00.1 Bradycardia, unspecified; B96.89 Other specified bacterial agents as the cause of diseases classified elsewhere; F17.210 Nicotine dependence, cigarettes, uncomplicated; I10 Essential (primary) hypertension; G43.909 Migraine, unspecified, not intractable, without status migrainosus; Z90.710 Acquired absence of both cervix and uterus; Z91.040 Latex allergy status; Z88.1 Allergy status to other antibiotic agents; Z79.1 Long term (current) use of non-steroidal anti-inflammatories (NSAID); Z79.899 Other long term (current) drug therapy; Z87.59 Personal history of other complications of pregnancy, childbirth and the puerperium; Z98.890 Other specified postprocedural states; Z98.51 Tubal ligation status; Z90.722 Acquired absence of ovaries, bilateral; Z28.21 Immunization not carried out because of patient refusal
CPT/HCPCS: 36415; 74177; 80048; 80053; 81001; 82607; 82728; 83540; 83550; 83735; 84443; 85025; 85610; 86592; 87086; 87324; 87491; 87507; 87591; 93306; 94762; 96374; 96375; 99285; A9270; J1171; J1650; J1885; J2270; J2405; J2543; J3480; J7050; J7120; Q9967

== ENCOUNTER 2024-12-11 09:43 | Emergency (ER) | payer OTHER ==
[~2024-12-11] VITALS: Ht 152.4 cm; Wt 54.4 kg
[~2024-12-11 09:43] MED LIST changes: +FERSU300 PO; +Nicoderm Cq1 EACH TOP; +VANCOCIN HCL125 MG PO; +VISBIOME 112.51 EACH PO
[2024-12-11] MEDS ORDERED: Ondansetron HCl 2 MG / ML 2ML Vial IV ONE (10:20)
[2024-12-11 10:40] LABS: Source, Urine Clean Catch
[2024-12-11 11:01] LABS: BASOPHILS ABSOLUTE AUTO 0.03 K/mm3 (0.00-0.23); BASOPHILS PERCENT AUTO 0 % (0-2); EOSINOPHILS ABSOLUTE AUTO 0.25 K/mm3 (0.00-0.68); EOSINOPHILS PERCENT AUTO 4 % (0-6); Hematocrit 37.6 % (33.0-51.0); Hemoglobin 12.7 g/dL (11.5-16.0); IMMATURE GRAN ABSOLUTE AUTO 0.01 K/mm3 (0.00-0.10); IMMATURE GRAN PERCENT AUTO 0 % (0-1); LYMPHOCYTES ABSOLUTE AUTO 3.49 K/mm3 (0.84-5.20); LYMPHOCYTES PERCENT AUTO 49 % (21-46); MONOCYTES ABSOLUTE AUTO 0.53 K/mm3 (0.16-1.47); MONOCYTES PERCENT AUTO 7 % (4-13); Mean Corpuscular HGB 31.4 pg (26.0-34.0); Mean Corpuscular HGB Conc 33.8 g/dL (31.5-36.5); Mean Corpuscular Volume 93 fL (80-100); Mean Platelet Volume 10.1 fL (9.1-12.4); NEUTROPHILS ABSOLUTE AUTO 2.83 K/mm3 (1.96-9.15); NEUTROPHILS PERCENT AUTO 40 % (41-73); Platelet Count 358 K/mm3 (150-400); RDW Coefficient Variation 13.3 % (11.7-14.2); RDW Standard Deviation 45.4 fL (35.1-46.3); Red Blood Cell Count 4.04 M/mm3 (3.80-5.20); White Blood Cell Count 7.14 K/mm3 (4.00-11.30)
[2024-12-11 11:12] LABS: Appearance, Urine Clear (Clear); Bilirubin, Urine Neg (Neg); Blood, Urine Neg (Neg); Color, Urine Yellow (P-Yellow); Glucose Qualitative, Urine Neg (Neg); Ketones, Urine Neg (Neg); Leukocyte Esterase, Urine 2+ (Neg); Nitrite, Urine Neg (Neg); Protein, Urine 1+ (Neg); Urobilinogen, Urine NORM (Normal)
[2024-12-11 11:23] LABS: Albumin, Blood 3.5 g/dL (3.4-5.0); Albumin/Globulin Ratio 0.9 (0.8-1.8); Bilirubin, Total 0.4 mg/dL (0.1-1.0); Bun/Creatinine Ratio 20.4 (12.0-20.0); Calcium, Blood 9.3 mg/dL (8.5-10.1); Creatinine, Blood 0.93 mg/dL (0.40-1.00); Globulin, Blood 3.8 g/dL (2.2-4.0); Potassium, Blood 3.6 mmol/L (3.5-5.5); Total Protein, Blood 7.3 g/dL (6.4-8.2)
[2024-12-11 11:57] LABS: Bacteria Many /hpf; Calcium Oxalate Crystals Many /hpf; Mucus Light (0-Heavy); Red Blood Cells, Urine 0-2 /hpf (0-2); Squamous Epithelial Cells Many /hpf (Few)
[2024-12-11] MEDS ORDERED: NS 1,000 ML IV SCH (13:10)
[2024-12-11] MEDS ORDERED: Prochlorperazine Edisylate 10 mg Vial IV ONE (13:10)
[2024-12-11] MEDS ORDERED: Ketorolac Tromethamine 30mg Vial IV ONE (13:10)
[2024-12-11 14:15] VITALS: BP 106/49
[2024-12-11] MEDS ORDERED: Atropine/Scopalam/Hyoscam/PB 5 ML UDC PO ONE (14:25)
[2024-12-11] MEDS ORDERED: ONDA4ODT MM (14:35)
[2024-12-11] MEDS ORDERED: DICY20 PO (14:35)
[2024-12-11] MEDS ORDERED: MIRALAX17 GM PO (14:35)
== END 2024-12-11 14:50 | disposition home or self-care (01) ==
LOC: ER 09:43
PROVIDERS: Physician Assistant
DX: K59.03 Drug induced constipation (principal); T40.605A Adverse effect of unspecified narcotics, initial encounter; R11.2 Nausea with vomiting, unspecified; G43.909 Migraine, unspecified, not intractable, without status migrainosus; F17.200 Nicotine dependence, unspecified, uncomplicated; Z91.040 Latex allergy status; Z88.1 Allergy status to other antibiotic agents; Z79.899 Other long term (current) drug therapy; Z86.19 Personal history of other infectious and parasitic diseases
CPT/HCPCS: 74177; 80053; 81001; 83690; 85025; 87077; 87086; 87147; 87186; 96374; 96375; 99284-25; A9270; J0780; J1885; J2405; J7030; Q9967

== ENCOUNTER → 2025-07-02 | Outpatient (CLI) | payer OTHER ==
[~2025-07-02] MED LIST changes: +DICY20 PO; +MIRALAX17 GM PO
== END ==
LOC: LAB 15:45 → LAB SHORT 15:45
DX: L03.012 Cellulitis of left finger (principal)
CPT/HCPCS: 87070; 87077; 87147; 87186; 87205

== ENCOUNTER 2025-07-31 18:23 | Emergency (ER) | payer OTHER ==
[~2025-07-31] VITALS: Ht 152.4 cm; Wt 45.4 kg
[2025-07-31 18:46] VITALS: BP 142/118
[2025-07-31] MEDS ORDERED: Ketorolac Tromethamine 30mg Vial IM ONE (18:50)
== END 2025-07-31 20:14 | disposition home or self-care (01) ==
LOC: ER 18:23
DX: S80.01XA Contusion of right knee, initial encounter (principal); S60.511A Abrasion of right hand, initial encounter; V18.4XXA Pedal cycle driver injured in noncollision transport accident in traffic accident, initial encounter; F17.200 Nicotine dependence, unspecified, uncomplicated; Z88.1 Allergy status to other antibiotic agents; Z91.040 Latex allergy status; Z79.899 Other long term (current) drug therapy
CPT/HCPCS: 73562-RT; 90471; 90715; 96372; 99283-25; J1885